=== PATIENT | male | born 1935 | race Caucasian/White ===

== ENCOUNTER 2017-01-22 10:04 | Inpatient (IN) | payer OTHER, MEDICARE ==
[2017-01-22 10:25] VITALS: BMI 23.5
--- NOTE | 2017-01-22 10:35 | PDOC ---
History of Present Illness - General History Source: Patient, Care Provider Exam Limitations: Dementia - History of Present Illness Timing/Duration: reports: other (2 days) <Kelsi Young - Last Filed: 01/22/17 12:00> - General History Source: Patient, Other Exam Limitations: Dementia - History of Present Illness Initial Comments: 01/22/17 10:37 The patient is a 81 year old male, resident of [facility], accompanied by home health aide, with a significant past medical history of hypertension, hyperlipidemia, diabetes mellitus, dementia, and bladder/prostate cancer, who presents to the emergency department s/p MRI evaluation earlier this morning. The patient reports he was being evaluated for an MRI this morning, due to recent history of coughing and choking while eating. MRI was ordered for possible brain mass or stroke. As per home health aide, the patients speech has been clear. She denies patient has any new weakness, numbness, or changes in behavior. The patient denies any chest pain, shortness of breath, diaphoresis , or palpitations. The patient denies any fever, chills, headache, dizziness, lightheadedness, or changes in vision. The patient denies any recent travel or sick contacts. The patient is on aspirin. Allergies: None reported. Past Surgical History: None Hernia repair, CABG. Social History: Non-smoker. Denies alcohol or drug use. PCP: Dr. Schumacher <Mikayla Lockett - Last Filed: 01/22/17 13:02> - General Chief Complaint: CVA/TIA Stated Complaint: STROKE Time Seen by Provider: 01/22/17 10:10 Past History - Past Medical History Cancer: Yes (UROLOGICAL) Diabetes: Yes Disorders: Yes (UROLOGICAL CA) HTN: Yes Hypercholesterolemia: Yes - Surgical History Abdominal Surgery: Yes (HERNIA REPAIR) Cardiac Surgery: Yes (CABG) - Psycho/Social/Smoking Cessation Hx Anxiety: No Suicidal Ideation: No Smoking Status: No Smoking History: Never smoked Number of Cigarettes Smoked Daily: 0 Hx Alcohol Use: No <Kelsi Young - Last Filed: 01/22/17 12:00> <Mikayla Lockett - Last Filed: 01/22/17 13:02> - Past Medical History Allergies/Adverse Reactions: Allergies Allergy/AdvReac Type Severity Reaction Status Date / Time No Known Allergies Allergy Verified 01/22/17 10:11 Home Medications: Ambulatory Orders Aspirin Coated [Ecotrin -] 81 mg PO DAILY 06/20/12 Atenolol [Tenormin -] 25 mg PO DAILY 06/20/12 Metformin HCl [Glucophage -] 500 mg PO BID 06/20/12 Oxycodone HCl/Acetaminophen [Percocet 5-325 mg Tablet] 1 - 2 tab PO Q6H Simvastatin 40 mg PO DAILY 06/20/12 Bicalutamide 50 mg PO DAILY 06/21/12 Colace 100 mg PO TID 06/21/12 Plavix 75 mg PO DAILY 06/21/12 Ramipril 2.5 mg PO DAILY 06/21/12 Zetia 10 mg PO DAILY 06/21/12 Levofloxacin [Levaquin -] 500 mg PO DAILY@0600 #6 tablet 06/23/12 Oxycodone HCl/Acetaminophen [Percocet 5-325 mg Tablet] 1 combo PO Q6H PRN #0 tablet 06/23/12 Oxycodone HCl/Acetaminophen [Percocet 5-325 mg Tablet] 2 combo PO Q6H PRN #0 tablet 06/23/12 Review of Systems - Review of Systems Able to Perform ROS?: Yes Comments:: 01/22/17 10:37 GENERAL/CONSTITUTIONAL: No fever or chills. No new weakness. HEAD, EYES, EARS, NOSE AND THROAT: No change in vision. No ear pain or discharge. No sore throat. CARDIOVASCULAR: No chest pain or shortness of breath. RESPIRATORY: Yes: +cough, +choking when eating. No wheezing or hemoptysis. GASTROINTESTINAL: No nausea, vomiting, diarrhea or constipation. GENITOURINARY: No dysuria, frequency, or change in urination. MUSCULOSKELETAL: No joint or muscle swelling or pain. No neck or back pain. SKIN: No rash NEUROLOGIC: No headache, vertigo, loss of consciousness, or change in strength/ sensation. ENDOCRINE: No increased thirst. No abnormal weight change. HEMATOLOGIC/LYMPHATIC: No anemia, easy bleeding, or history of blood clots. ALLERGIC/IMMUNOLOGIC: No hives or skin allergy. <Mikayla Lockett - Last Filed: 01/22/17 13:02> *Physical Exam - Vital Signs Last Vital Signs Temp Pulse Resp BP Pulse Ox 97.7 F 77 20 145/77 98 01/22/17 10:12 01/22/17 10:12 01/22/17 10:12 01/22/17 10:12 01/22/17 10:12 - Physical Exam Comments: 01/22/17 10:38 GENERAL: Awake, alert, and disoriented to place and date, in no acute distress HEAD: No signs of trauma. Mild nasolabial flattening on left side of face, corrected with smiling. EYES: PERRLA, EOMI, sclera anicteric, conjunctiva clear ENT: Auricles normal inspection, hearing grossly normal, nares patent. Dry mucosa NECK: Normal ROM, supple, no lymphadenopathy, JVD, or masses LUNGS: Breath sounds equal, clear to auscultation bilaterally. No wheezes, and no crackles HEART: Regular rate and rhythm, normal S1 and S2, no murmurs, rubs or gallops ABDOMEN: Soft, nontender, normoactive bowel sounds. No guarding, no rebound. No masses EXTREMITIES: Normal range of motion, no edema. No clubbing or cyanosis. No cords, erythema, or tenderness. DP/PT pulses 2+ and symmetric. NEUROLOGICAL: Mild nasolabial flattening on left side of face. VF intact. EOMI. Mild left upper extremity weakness 4+/5. Bilateral lower extremity weakness 4+/5 , both drift and hit the bed. Sensation intact throughout. Speech is clear. Moves all extremities. Normal speech, normal gait SKIN: Warm, Dry, normal turgor, no rashes or lesions noted. <Mikayla Lockett - Last Filed: 01/22/17 13:02> Heart Score/ECG Review - ECG Intrepretation Rhythm: Regular Rhythm - [place]: Normal Comment: 01/22/17 12:00 69 bpm. Q wave III only, no st elevation or depression. <Kelsi Yougn - Last Filed: 01/22/17 12:00> Critical Care Time/MDM Note - Medical Decision Making Note: 01/22/17 10:14 81 yo m with h/o bladder ca, htn DM here from MRI for concerns for acute cva. pt aid here providing history, states had choking episode few days ago, so follow up with urologist yesterday, who ordered brain MRI, sent from MRI today for acute cva on mri. pt denies acute weakness, no cp no sob. per aid, speech is baseline, she has worked with pt for few months, only in pm however. no f/c no n/v. no new weakness. on exam mild left nasolabial left fold flattening correct with smilling .speech clear. mild left upper ext weakness . bilat lower ext weakness, sensation intact. MDM: MRI with subacute right cerebral infarct. will admit for echo, carotid eval. consult nuerology, and pcp. labs ua r/o infection such as uti. cxr. 01/22/17 11:25 d/w dr. butterfield, will see pt in hospital. recommend admit, asa, statin if not already taking, swallow screen echo. pt sees dr. malik, not come to [facility]. 01/22/17 11:46 d/w dr. Moss at [facility]. will fax over [employer]. will notify family ( son). told to admit to hospitalist. d/w , will admit to dr. Jacobo. <Kelsi Young - Last Filed: 01/22/17 12:00> - Medical Decision Making Note: 01/22/17 10:39 EXAM: Brain MRI INTERPRETED BY: Dr. Ortega REVIEWED BY: Dr. Young IMPRESSION: Nonhemorrhagic acute/early subacute infarct involving the right cerebral peduncle - in the vascular territory of the peduncular branches of P1 segment of the right posterior cerebral artery. Cerebral atrophy associated with extensive coalescent supratentorial white matter chronic microangiopathic ischemic changes, gliosis. Dilated temporal horns associated with loss of volume of the medial temporal lobes, hippocampus - Alzheimer dementia4 EXAM: CXR INTERPRETED BY: Dr. Ortega REVIEWED BY: Dr. Young IMPRESSION: No evidence of active pulmonary disease. First call placed to Dr. Butterfield at 10:49, awaiting call back. First call placed to Dr. Cotto at 11:31. Case discussed at this time. Documentation prepared by Mikayla Lockett, acting as medical biller coder for Kelsi Young MD. <Mikayla Lockett - Last Filed: 01/22/17 13:02> Discharge Disposition - Discharge Dispostion Admit: Yes <Kelsi Young - Last Filed: 01/22/17 12:00> <Mikayla Lockett - Last Filed: 01/22/17 13:02> - Diagnosis Cerebrovascular accident (CVA)
--- NOTE | 2017-01-22 10:37 | PDOC ---
NIH Stroke Scale - Last Known Well Date/Time & Onset Date Last Known Well: 01/20/17 - Initial Evaluation Level of consciousness: Alert Ask patient the month and their age: Both incorrect Ask patient to open & close eyes; make fist and let go: Obeys both correctly Best gaze (horizontal eye movement): Normal Visual field testing: No visual field loss Facial paresis (Show teeth/raise eyebrows/close eyes tight): Minor paralysis ( flattened nasolabial fold, asymmetry on smiling) (mild left nasolabial fold flattening) Motor Function: Left Arm: Normal (no drift, but 4/+ weakness compared to right when against resistance) Motor Function: Right Arm: Normal (extends arm 90 (or 45) degrees for 10 seconds without drift Motor Function: Left Leg: Drift Motor Function: Right Leg: Drift Limb Ataxia: No ataxia Sensory(Use pinprick test arms,legs,trunk,face/side to side): Normal Best language (Describe picture, name items, read sentences): No Aphasia Dysarthria (read several words): Normal articulation Extinction and Inattention: No abnormality - Total Score NIH Stroke Scale Score: 5
[2017-01-22] MEDS ORDERED: SODIUM CHLORIDE 1,000 ML IV SCH (10:45)
[2017-01-22 11:03] LABS: BASOPHIL 0.3 % (0-2.0); EOSINOPHIL 3.9 % (0-4.5); MCH 30.3 pg (25.7-33.7); MCHC 33.9 g/dl (32.0-35.9); MEAN CELL VOLUME 89.2 fl (80-96); MEAN PLT VOLUME 8.7 fl (7.5-11.1); NEUTROPHILS 75.3 % (42.8-82.8); PLATELET COUNT 219 K/MM3 (134-434); WHITE BLOOD COUNT 7.5 K/mm3 (4.0-10.0)
[2017-01-22 11:14] LABS: INR 1.09 (0.82-1.09)
[2017-01-22 11:45] LABS: ALBUMIN 3.3 g/dl (3.4-5.0); ANION GAP 10 (8-16); BILIRUBIN,TOTAL 0.4 mg/dL (0.2-1.0); CALCIUM 8.9 mg/dL (8.5-10.1); CHOLESTEROL 257 mg/dL (50-200); CO2 28 mmol/L (21-32); GLUCOSE,RANDOM 223 mg/dL (74-106); LDL CHOLESTEROL (ONLY SJRH) 193 mg/dL (5-100); SGOT/AST 10 U/L (15-37); SGPT/ALT 9 U/L (12-78); TOT PROT 6.6 g/dl (6.4-8.2)
[2017-01-22 11:46] LABS: ALK PHOS 69 U/L (45-117); TROPONIN I < 0.02 ng/ml (0.00-0.05)
--- NOTE | 2017-01-22 12:26 | HP ---
CHIEF COMPLAINT: recent findings of CVA on MRI HISTORY OF PRESENT ILLNESS: The patient is a 81 year old male from [facility] under Dr. Ellington's care and accompanied by home health aide from the custodial. The [facility] and reports state pt has been having coughing and minor choking episodes in the custodial and his PCP arranged for pt to have an MRI brain for evaluation. Today that MRI was obtained and it was noted to have a positive finding of a non hemorrhagic stroke. As per home health aide, the patients speech has been clear. She denies patient has any new weakness, numbness, or changes in behavior however pt does have moderate dementia. The patient denies any chest pain, shortness of breath, diaphoresis, or palpitations. The patient denies any fever, chills, headache, dizziness, lightheadedness, or changes in vision. The patient denies any recent travel or sick contacts. The patient is on aspirin. Allergies: None reported. Social History: Non-smoker. Denies alcohol or drug use. PCP: Dr. Joyner prior to [facility] admission ER course was notable for: (1) MRI with + finding of acute CVA on right cerebral region non hemorrhagic, pt stable. (2) Neuro consult by Dr. Bynum, will follow pt and pt work up Recent Travel: none resident of [facility] PAST MEDICAL HISTORY: hypertension, hyperlipidemia, diabetes mellitus, dementia, and bladder/prostate cancer, PAST SURGICAL HISTORY: CABG, hernia repair Family History: Allergies No Known Allergies Allergy (Verified 01/22/17 10:11) HOME MEDICATIONS: Need to follow up with halfway for new list of updated meds that pt is taking. Home Medications Medication Instructions Recorded Aspirin Coated [Ecotrin -] 81 mg PO DAILY 06/20/12 Atenolol [Tenormin -] 25 mg PO DAILY 06/20/12 Metformin HCl [Glucophage -] 500 mg PO BID 06/20/12 Oxycodone HCl/Acetaminophen 1 - 2 tab PO Q6H 06/20/12 [Percocet 5-325 mg Tablet] Simvastatin 40 mg PO DAILY 06/20/12 Bicalutamide 50 mg PO DAILY 06/21/12 Colace 100 mg PO TID 06/21/12 Plavix 75 mg PO DAILY 06/21/12 Ramipril 2.5 mg PO DAILY 06/21/12 Zetia 10 mg PO DAILY 06/21/12 Levofloxacin [Levaquin -] 500 mg PO DAILY@0600 #6 tablet 06/23/12 Oxycodone HCl/Acetaminophen 1 combo PO Q6H PRN #0 tablet 06/23/12 [Percocet 5-325 mg Tablet] Oxycodone HCl/Acetaminophen 2 combo PO Q6H PRN #0 tablet 06/23/12 [Percocet 5-325 mg Tablet] REVIEW OF SYSTEMS Difficult to obtain as pt is Awake and alert but not oriented to time, place, or person and makes statements that are irrelevant to discussion. [facility] states this is not any new changes as she cares for him often. PHYSICAL EXAMINATION Vital Signs - 24 hr 01/22/17 01/22/17 01/22/17 10:12 10:20 11:02 Temperature 97.7 F Pulse Rate 77 Pulse Rate [ 68 Left Radial] Respiratory 20 16 Rate Blood Pressure 145/77 Blood Pressure 126/74 [Right Arm] O2 Sat by Pulse 98 98 98 Oximetry (%) GENERAL: Awake, alert, and not oriented to T, P, P but attempts to verbalize and make conversation. HEAD: Normal with no signs of trauma. No facial droop, lips symmetrical EYES: Pupils equal, round and reactive to light, extraocular movements intact, sclera anicteric, conjunctiva clear. No lid lag. EARS, NOSE, THROAT: Ears normal, nares patent, oropharynx clear without exudates. Moist mucous membranes. NECK: Normal range of motion, supple without lymphadenopathy, JVD, or masses. LUNGS: Breath sounds equal, clear to auscultation bilaterally. No wheezes, and no crackles. No accessory muscle use. HEART: Regular rate and rhythm, normal S1 and S2 without murmur, rub or gallop. ABDOMEN: Soft, nontender, not distended, normoactive bowel sounds, no guarding, no rebound, no masses. No hepatomegaly or splenomegaly. MUSCULOSKELETAL: Normal range of motion at all joints. No bony deformities or tenderness. No CVA tenderness. UPPER EXTREMITIES: 2+ pulses, warm, well-perfused. No cyanosis. No clubbing. No peripheral edema. LOWER EXTREMITIES: 2+ pulses, warm, well-perfused. No calf tenderness. No peripheral edema. NEUROLOGICAL: Pt is pleasantly confused, able to follow simple commands but short term only. His NIHSS score prior to my admission was> PSYCHIATRIC: Cooperative. Good eye contact. Appropriate mood and affect. SKIN: Warm, dry, normal turgor, no rashes or lesions noted, normal capillary refill. Laboratory Results - last 24 hr 01/22/17 11:02 WBC 7.5 RBC 4.42 Hgb 13.4 Hct 39.4 MCV 89.2 MCHC 33.9 RDW 14.0 Plt Count 219 MPV 8.7 Neutrophils % 75.3 Lymphocytes % 12.8 Monocytes % 7.7 Eosinophils % 3.9 Basophils % 0.3 ASSESSMENT/PLAN: 1. Right cerebral CVA, non hemorrhagic -ED Dr. Young, spoke with neurology supervisor personnel clerks and due to time frame out from ? CVA onset, no TPA was given. -EKG: NSR currently -Echo -carotid duplex -labs, ua, cxr -ASA continues -statin once list is updated with Ani -swallow study -admission to tele inpatient 2. HTN -continue meds 3. GI/PPX heparin continue 4. Dementia -monitor for fall risk and safety risk 5 HLD -continue with statin Visit type - Emergency Visit Emergency Visit: Yes Care time: The patient presented to the Emergency Department on the above date and was hospitalized for further evaluation of their emergent condition. - New Patient This patient is new to me today: Yes Date on this admission: 01/22/17 - Critical Care Critical Care patient: No
--- NOTE | 2017-01-22 18:41 | CON.NEURO ---
Consult Consult Specialty:: Neurology - History of Present Illness History of Present Illness: 81 year old male history of cabg, and dementia . He is assisted resident. recently he has been having difficulty swallowing and was sent for mri of brain and it showed there is brain stem stroke. he was admitted for treatment of stroke. Family thinks speech may not be very clear . Mri showed acute stroke. - Alcohol/Substance Use Hx Alcohol Use: No - Smoking History Smoking history: Never smoked Have you smoked in the past 12 months: No Aproximately how many cigarettes per day: 0 Home Medications - Allergies Allergies/Adverse Reactions: Allergies Allergy/AdvReac Type Severity Reaction Status Date / Time No Known Allergies Allergy Verified 01/22/17 10:11 - Home Medications Home Medications: Ambulatory Orders Acetaminophen [Tylenol] 650 mg PO PRN PRN 01/22/17 Bupropion HCl [Wellbutrin Xl] 300 mg PO DAILY 01/22/17 Carbidopa/Levodopa *Cr* 25/100 [Sinemet *Cr* 25/100 -] 1 combo PO TID 01/22/17 Insulin Lispro [Humalog] 0 unit SQ ASDIR 01/22/17 Levothyroxine [Synthroid -] 25 mcg PO DAILY 01/22/17 Losartan Potassium 50 mg PO DAILY 01/22/17 Magnesium Hydroxide [Milk of Magnesia] 30 ml PO DAILY 01/22/17 Metformin HCl 500 mg PO BID 01/22/17 Quetiapine Fumarate [Seroquel -] 25 mg PO HS 01/22/17 Physical Exam-Neuro Vital Signs: Vital Signs Temperature 98.8 F 01/22/17 17:33 Pulse Rate 63 01/22/17 17:33 Respiratory Rate 20 01/22/17 17:33 Blood Pressure 146/82 01/22/17 17:33 O2 Sat by Pulse Oximetry (%) 98 01/22/17 15:20 Labs: INR, PTT INR 1.09 (0.82-1.09) 01/22/17 10:50 - Neuro Exam Gait: Normal, Ataxia, Deferred, Other NIH Stroke Scale - Total Score NIH Stroke Scale Score: 0 Imaging - Results MRI: Report Reviewed Assessment/Plan 81 year old male history of cabg, and dementia . He is assisted resident. recently he has been having difficulty swallowing and was sent for mri of brain and it showed there is brain stem stroke. he was admitted for treatment of stroke. Family thinks speech may not be very clear . Mri showed acute stroke. Physical examination MS alert and follow command, orientation x 0 cn - intact, except difficulty swallowing , no facial asymmetry motor moving all extremity MRI reviewed and there is acute stroke Assessment-- Brain stem infarct, causing difficlty swallowing. Plan continue apsirin and statin - pt , speech evauation and dvt prophylaxis -- family wishes to be very conservative and even do not wish to keep him on statin as it caused him to have side effect in past. - at this time extensive work up would not be very helpful and echo and carotid ultrasound may not be necessary - supportive care thanks for consult lorri butterfield md
[2017-01-22] MEDS: metFORMIN HCL 500 MG TABLET (FP) PO SCH (18:43)
[2017-01-22] MEDS ORDERED: QUEtiapine FUMARATE 25 MG TABLET (FP) PO SCH (22:00)
[2017-01-23] MEDS: metFORMIN HCL 500 MG TABLET (FP) PO SCH (06:32)
[2017-01-23 07:19] LABS: BASOPHIL 0.4 % (0-2.0); EOSINOPHIL 4.6 % (0-4.5); MCH 30.6 pg (25.7-33.7); MCHC 34.6 g/dl (32.0-35.9); MEAN CELL VOLUME 88.3 fl (80-96); MEAN PLT VOLUME 8.5 fl (7.5-11.1); NEUTROPHILS 73.8 % (42.8-82.8); PLATELET COUNT 212 K/MM3 (134-434); WHITE BLOOD COUNT 6.8 K/mm3 (4.0-10.0)
[2017-01-23 07:41] LABS: INR 1.12 (0.82-1.09); PROTHROMBIN TIME (PATIENT) 12.3 SEC (9.98-11.88)
[2017-01-23 07:44] LABS: ACTIVATED PTT 24.1 SECONDS (26.9-34.4)
[2017-01-23 07:48] LABS: ALBUMIN 3.2 g/dl (3.4-5.0); ANION GAP 10 (8-16); CALCIUM 8.7 mg/dL (8.5-10.1); CHOLESTEROL 258 mg/dL (50-200); CO2 27 mmol/L (21-32); COCKROFT - GAULT 60.89; CREATININE 0.9 mg/dL (0.7-1.3); GLUCOSE,RANDOM 153 mg/dL (74-106); SGOT/AST 14 U/L (15-37); SGPT/ALT 14 U/L (12-78)
[2017-01-23 07:50] LABS: ALK PHOS 71 U/L (45-117); BILIRUBIN,TOTAL 0.5 mg/dL (0.2-1.0); LDL CHOLESTEROL (ONLY SJRH) 195 mg/dL (5-100); TOT PROT 6.4 g/dl (6.4-8.2); TROPONIN I < 0.02 ng/ml (0.00-0.05)
[2017-01-23] MEDS ORDERED: PT OWN MED DRAWER 7, Y5N ONE ×2 (09:33→12:56)
[2017-01-23] MEDS ORDERED: EZETIMIBE 10 MG TABLET (FP) PO SCH (10:00)
[2017-01-23] MEDS ORDERED: ATENOLOL 25 MG TABLET (FP) PO SCH (10:00)
[2017-01-23] MEDS ORDERED: BICALUTAMIDE 50 MG TABLET (FP) PO SCH (10:00)
[2017-01-23] MEDS ORDERED: RAMIPRIL 2.5 MG CAPSULE (FP) PO SCH (10:00)
[2017-01-23] MEDS ORDERED: ASPIRIN COATED 81 MG TABLET.EC PO SCH (10:00)
[2017-01-23] MEDS ORDERED: CLOPIDOGREL BISULFATE 75 MG TABLET (FP) PO SCH (10:00)
--- NOTE | 2017-01-23 11:57 | PN ---
Physical Exam: SUBJECTIVE: Patient seen and examined. He is calm in bed. He says he feels alright, he is unable to recall where he is. OBJECTIVE: Vital Signs Period Temp Pulse Resp BP Sys/Gibson Pulse Ox Last 24 Hr 97.6 F-98.8 F 63-71 14-20 108-151/64-84 98-98 PE Neuro: alert, awake, cn 2-12intact, 5/5 le motor, L grasp 4/5, R grasp 5/5, no facial droop, sensory intact Pulm: CTAB CV: s1 s2 rrr 3/6 systolic murmur Abd: s nt nd +bs Ext: warm, no le edema CBCD WBC 6.8 K/mm3 (4.0-10.0) 01/23/17 06:00 RBC 4.31 M/mm3 (4.00-5.60) 01/23/17 06:00 Hgb 13.2 GM/dL (11.7-16.9) 01/23/17 06:00 Hct 38.0 % (35.4-49) 01/23/17 06:00 MCV 88.3 fl (80-96) 01/23/17 06:00 MCHC 34.6 g/dl (32.0-35.9) 01/23/17 06:00 RDW 14.0 % (11.9-15.9) 01/23/17 06:00 Plt Count 212 K/MM3 (134-434) 01/23/17 06:00 MPV 8.5 fl (7.5-11.1) 01/23/17 06:00 CMP Sodium 140 mmol/L (136-145) 01/23/17 06:00 Potassium 3.9 mmol/L (3.5-5.1) 01/23/17 06:00 Chloride 103 mmol/L (98-107) 01/23/17 06:00 Carbon Dioxide 27 mmol/L (21-32) 01/23/17 06:00 Anion Gap 10 (8-16) 01/23/17 06:00 BUN 20 mg/dL (7-18) H D 01/23/17 06:00 Creatinine 0.9 mg/dL (0.7-1.3) 01/23/17 06:00 Creat Clearance w eGFR > 60 (>60) 01/23/17 06:00 Calcium 8.7 mg/dL (8.5-10.1) 01/23/17 06:00 Total Bilirubin 0.5 mg/dL (0.2-1.0) D 01/23/17 06:00 AST 14 U/L (15-37) L D 01/23/17 06:00 ALT 14 U/L (12-78) D 01/23/17 06:00 Alkaline Phosphatase 71 U/L (45-117) 01/23/17 06:00 Total Protein 6.4 g/dl (6.4-8.2) 01/23/17 06:00 Albumin 3.2 g/dl (3.4-5.0) L 01/23/17 06:00 01/23/17 06:00 Troponin I < 0.02 B-Natriuretic Peptide 279.49 Total LDL Cholesterol 195 H HDL Cholesterol 37 L Active Medications Generic Name Dose Route Start Last Admin Trade Name Freq PRN Reason Stop Dose Admin Aspirin 81 mg 01/23/17 10:00 01/23/17 09:35 Ecotrin - PO 81 mg DAILY ZEUS Administration Atenolol 25 mg 01/23/17 10:00 01/23/17 09:35 Tenormin - PO 25 mg DAILY ZEUS Administration Atorvastatin Calcium 20 mg 01/23/17 22:00 Lipitor - PO HS ZEUS Bicalutamide 50 mg 01/23/17 10:00 01/23/17 09:36 Casodex - PO 50 mg DAILY ZEUS Administration Carbidopa/Levodopa 1 combo 01/22/17 22:00 01/23/17 06:32 Sinemet *Cr* 25/100 - PO 1 combo TID ZEUS Administration Clopidogrel Bisulfate 75 mg 01/23/17 10:00 01/23/17 09:35 Plavix - PO 75 mg DAILY ZEUS Administration Ezetimibe 10 mg 01/23/17 10:00 01/23/17 09:35 Zetia - PO 10 mg DAILY ZEUS Administration Sodium Chloride 1,000 mls @ 42 mls/hr 01/22/17 10:45 01/22/17 11:14 Normal Saline - IV 42 mls/hr ASDIR ZEUS Administration Metformin HCl 500 mg 01/22/17 16:30 01/23/17 06:32 Glucophage - PO 500 mg BIDAC ZEUS Administration Quetiapine Fumarate 25 mg 01/22/17 22:00 01/22/17 21:14 Seroquel - PO 25 mg HS ZEUS Administration Ramipril 2.5 mg 01/23/17 10:00 01/23/17 09:35 Altace - PO 2.5 mg DAILY ZEUS Administration Assessment: 81 year old male, resident of [facility], accompanied by home health aide, with a significant past medical history of HTN, HLD, DM II, dementia, and bladder/prostate cancer, admitted difficulty swallowing shown to have acute CVA. Plan: 1. Acute CVA - MRI shows Brain stem infarct - Family wishes to be conservative, dose not want statin d/t side effects in past - Take zetia at home - Continue ASA - Per neuro d/t conservative mgmt will defer echo and CD at this time - Swallowing improved, tolerating dysphagia diet - PT daily 2. CABG - Continue plavix/ASA - Ramipril 2.5mg daily - Atenolol 25mg qday 3. HTN - Controlled - Meds above 4. Dementia - Continue seroquel - Continue sinemet 5. DM II - Continue metformin 500mg BID AC 6. Prostate/bladder ca - Cont Casodex 7. Dysphagia - Improved, due to brain stem cva - Continue dysphagia with thickened liquids - Stop fluids Dispo: - Return to [facility], d/w , awaiting response from CT Visit type - Emergency Visit Emergency Visit: Yes ED Registration Date: 01/22/17 Care time: The patient presented to the Emergency Department on the above date and was hospitalized for further evaluation of their emergent condition. - New Patient This patient is new to me today: Yes Date on this admission: 01/23/17 - Critical Care Critical Care patient: No
[2017-01-23] MEDS ORDERED: ENOXAPARIN NA (PORCINE) 40 MG/0.4 ML DISP.SYRIN SQ SCH (12:00)
[2017-01-23 15:09] VITALS: BP 125/72; PULSE 60; TEMP 98.2
--- NOTE | 2017-01-23 15:51 | DS ---
Physical Exam: SUBJECTIVE: Patient seen and examined. He is calm. Ambulated with walker and 2 assist per RN. Tolerating PO. OBJECTIVE: Vital Signs Period Temp Pulse Resp BP Sys/Gibson Pulse Ox Last 24 Hr 97.6 F-98.8 F 60-76 14-20 108-151/64-84 PE Neuro: alert, awake, cn 2-12intact, 5/5 le motor, L grasp 4/5, R grasp 5/5, no facial droop, sensory intact Pulm: CTAB CV: s1 s2 rrr 3/6 systolic murmur Abd: s nt nd +bs Ext: warm, no le edema CBCD WBC 6.8 K/mm3 (4.0-10.0) 01/23/17 06:00 RBC 4.31 M/mm3 (4.00-5.60) 01/23/17 06:00 Hgb 13.2 GM/dL (11.7-16.9) 01/23/17 06:00 Hct 38.0 % (35.4-49) 01/23/17 06:00 MCV 88.3 fl (80-96) 01/23/17 06:00 MCHC 34.6 g/dl (32.0-35.9) 01/23/17 06:00 RDW 14.0 % (11.9-15.9) 01/23/17 06:00 Plt Count 212 K/MM3 (134-434) 01/23/17 06:00 MPV 8.5 fl (7.5-11.1) 01/23/17 06:00 CMP Sodium 140 mmol/L (136-145) 01/23/17 06:00 Potassium 3.9 mmol/L (3.5-5.1) 01/23/17 06:00 Chloride 103 mmol/L (98-107) 01/23/17 06:00 Carbon Dioxide 27 mmol/L (21-32) 01/23/17 06:00 Anion Gap 10 (8-16) 01/23/17 06:00 BUN 20 mg/dL (7-18) H D 01/23/17 06:00 Creatinine 0.9 mg/dL (0.7-1.3) 01/23/17 06:00 Creat Clearance w eGFR > 60 (>60) 01/23/17 06:00 Calcium 8.7 mg/dL (8.5-10.1) 01/23/17 06:00 Total Bilirubin 0.5 mg/dL (0.2-1.0) D 01/23/17 06:00 AST 14 U/L (15-37) L D 01/23/17 06:00 ALT 14 U/L (12-78) D 01/23/17 06:00 Alkaline Phosphatase 71 U/L (45-117) 01/23/17 06:00 Total Protein 6.4 g/dl (6.4-8.2) 01/23/17 06:00 Albumin 3.2 g/dl (3.4-5.0) L 01/23/17 06:00 01/22/17 01/23/17 01/23/17 10:50 06:00 06:00 INR 1.12 PTT (Actin FS) 24.1 L Troponin I < 0.02 < 0.02 Triglycerides 211 H Cholesterol 258 H Total LDL Cholesterol 195 H HDL Cholesterol 37 L HOSPITAL COURSE: Date of Admission:01/22/17 Date of Discharge: 01/23/17 Minutes to complete discharge: 35 Discharge Summary Reason For Visit: CVA Current Active Problems Cerebrovascular accident (CVA) (Acute) Hospital Course: Initial Hospital Course: Briefly, this 81 year old male from [facility] under Dr. Ellington's care and accompanied by home health aide from the prison. The [facility] reported pt has been having coughing and minor choking episodes in the prison and his PCP arranged for pt to have an MRI brain for evaluation. On the day of admission the MRI was obtained and it was noted to have a positive finding of a non hemorrhagic stroke. As per home health aide, the patients speech has been clear. She denied patient has any new weakness, numbness, or changes in behavior however pt does have moderate dementia. Subsequent Hospital Course/Progress Note/Discharge Summary by a/p: Assessment: 81 year old male, resident of [facility], accompanied by home health aide, with a significant past medical history of HTN, HLD, DM II, dementia, and bladder/prostate cancer, admitted difficulty swallowing shown to have acute CVA. Plan: 1. Acute CVA - MRI shows Brain stem infarct, frontal region - Family wishes to be conservative, dose not want statin d/t side effects in past, however d/w son Emiliano, can continue zetia - Continue ASA - Per neuro d/t conservative mgmt will defer echo and CD at this time - Swallowing improved, tolerating dysphagia diet 2. CABG - Will stop plavix - Continue ASA - Losartan 50mg daily - Atenolol 25mg qday 3. HTN - Controlled - Meds above 4. Dementia - Continue Seroquel - Continue Sinemet 5. DM II - Continue metformin 500mg BID AC - Humalog BID sliding scale 6. Prostate/bladder ca - Son wishes to stop Casodex 7. Dysphagia - Improved, due to brain stem cva - Continue dysphagia with thickened liquids Dispo: - Return to [facility], discussed above with son Emiliano, he is aware and agrees to above plan. Condition: Stable - Instructions Diet, Activity, Other Instructions: Please return to the ED for any new, persistent, or worsening symptoms. Continue medications as directed on home medication list. Family to edit medication list in future, for now can continue ASA Referrals: Mel Schumacher MD [Staff Physician] - Disposition: HALFWAY FACILITY - Home Medications Comprehensive Discharge Medication List: Ambulatory Orders Acetaminophen [Tylenol] 650 mg PO PRN PRN 01/22/17 Bupropion HCl [Wellbutrin Xl] 300 mg PO DAILY 01/22/17 Carbidopa/Levodopa *Cr* 25/100 [Sinemet *Cr* 25/100 -] 1 combo PO TID 01/22/17 Levothyroxine [Synthroid -] 25 mcg PO DAILY 01/22/17 Magnesium Hydroxide [Milk of Magnesia] 30 ml PO DAILY 01/22/17 Metformin HCl 500 mg PO BID 01/22/17 Quetiapine Fumarate [Seroquel -] 25 mg PO HS 01/22/17 Aspirin Coated [Ecotrin -] 81 mg PO DAILY tab 01/23/17 Atenolol [Tenormin -] 25 mg PO DAILY tablet 01/23/17 Ezetimibe [Zetia -] 10 mg PO DAILY #0 tablet 01/23/17 Insulin Lispro [Humalog] 100 unit SQ BID #1 ml 01/23/17 Losartan Potassium 50 mg PO DAILY #30 tablet 01/23/17 This patient is new to me today: Yes Date on this admission: 01/23/17 Emergency Visit: Yes ED Registration Date: 01/22/17 Care time: The patient presented to the Emergency Department on the above date and was hospitalized for further evaluation of their emergent condition. Critical Care patient: No - Discharge Referral Referred to [facility] No Quality Measures-Exclusions - Ischemic Stroke Reason Statin not ordered at discharge: Adverse reaction to drug
[2017-01-23] MEDS ORDERED: ATORVASTATIN CA 20 MG TABLET (FP) PO SCH (22:00)
--- NOTE | 2017-01-25 12:56 | EKG ---
Test Reason : Blood Pressure : / mmHG Vent. Rate : 069 BPM Atrial Rate : 069 BPM P-R Int : 206 ms QRS Dur : 104 ms QT Int : 444 ms P-R-T Axes : 036 -13 054 degrees QTc Int : 475 ms NORMAL SINUS RHYTHM INFERIOR INFARCT , AGE UNDETERMINED ABNORMAL ECG NO PREVIOUS ECGS AVAILABLE Confirmed by PETE GAMBLE MD ([id number]) on 01/25/2017 12:56:21 PM Referred By: Confirmed By:PETE GAMBLE MD
== END 2017-01-23 17:30 | DRG 66 ==
LOC: JER 10:04 → JERBED 11:49 → J4S 16:05
PROVIDERS: ADMIT Internal Medicine; ATTEND Nurse Practitioner Acute Care
DX: I63.9 Cerebral infarction, unspecified (principal); E11.9 Type 2 diabetes mellitus without complications; I10 Essential (primary) hypertension; R29.705 NIHSS score 5; E78.5 Hyperlipidemia, unspecified; F03.90 Unspecified dementia, unspecified severity, without behavioral disturbance, psychotic disturbance, mood disturbance, and anxiety; C67.9 Malignant neoplasm of bladder, unspecified; C61 Malignant neoplasm of prostate; Z95.1 Presence of aortocoronary bypass graft; Z79.84 Long term (current) use of oral hypoglycemic drugs; R13.10 Dysphagia, unspecified
CPT/HCPCS: 36415; 70551-TC; 71020-TC; 80053; 80061; 82465; 82550; 83718; 83721; 83880; 84478; 84484; 85025; 85610; 85730; 86850; 86900; 86901; 93005; 93010; 93306-TC; 99285-25

== ENCOUNTER 2017-12-05 04:10 | Inpatient (IN) | payer MEDICARE, OTHER ==
[2017-12-05 04:24] VITALS: BMI 23.7
--- NOTE | 2017-12-05 04:40 | PDOC ---
History of Present Illness - General Chief Complaint: Injury Stated Complaint: FALL Time Seen by Provider: 12/05/17 04:17 - History of Present Illness Initial Comments: 12/05/17 04:31 pt is very poor historian , santhosh was taken from medical record and EMS . The patient is a 81 year old male, with a significant past medical history of hypertension, hyperlipidemia, diabetes mellitus, dementia, and bladder/prostate cancer, who presents to the emergency department s/p un witnessed fall . pt is aaox 2 , denies any chest pain, shortness of breath, diaphoresis, or palpitations. The patient denies any fever, chills, headache, dizziness, lightheadedness, or changes in vision. The patient denies any recent travel or sick contacts. The patient is on aspirin. Allergies: None reported. Past Surgical History: None Hernia repair, CABG. Social History: Non-smoker. Denies alcohol or drug use. PCP: Dr. Schumacher Physical exam : General: laying down in bed in NAD , AAO X [address] Head: right eye echymoses 2x2 cm upper eye lid Neck: supple Lungs: CTA B/L Heart: holosystolic murmure 2/6 in Lusb , LLSB and apex. No rubs or gallops Abdomen: soft , ND ,, NT , + BS Legs: +2DP, + 2 Edema Neuro: CN II-XII non intact , speach normal , gait not observed. Upper ext Strength 5/5 , LE strength 3/5 not able to raise legs against gravity. Sensation intact. skin warm dry , echymoses on right upper eye lid . DD: * Mechanical fall * Psyncope, * arrhthmia * * Work up: * CT head without contrast * EKG * CBC, CMP * orthostatics * cardiac profile 12/05/17 04:41 Past History - Past Medical History Allergies/Adverse Reactions: Allergies Allergy/AdvReac Type Severity Reaction Status Date / Time No Known Allergies Allergy Verified 12/05/17 04:22 Home Medications: Ambulatory Orders Acetaminophen [Tylenol] 650 mg PO PRN PRN 01/22/17 Bupropion HCl [Wellbutrin Xl] 300 mg PO DAILY 01/22/17 Levothyroxine [Synthroid -] 25 mcg PO DAILY 01/22/17 Magnesium Hydroxide [Milk of Magnesia] 30 ml PO DAILY 01/22/17 Aspirin Coated [Ecotrin -] 81 mg PO DAILY tab 01/23/17 Atenolol [Tenormin -] 25 mg PO DAILY tablet 01/23/17 Ezetimibe [Zetia -] 10 mg PO DAILY #0 tablet 01/23/17 Insulin Lispro [Humalog] 100 unit SQ BID #1 ml 01/23/17 Cancer: Yes (UROLOGICAL) Dementia: Yes Diabetes: Yes Disorders: Yes (UROLOGICAL CA) HTN: Yes Hypercholesterolemia: Yes - Surgical History Abdominal Surgery: Yes (HERNIA REPAIR) Cardiac Surgery: Yes (CABG) - Suicide/Smoking/Psychosocial Hx Smoking Status: No Smoking History: Unknown if ever smoked Have you smoked in the past 12 months: No Number of Cigarettes Smoked Daily: 0 Information on smoking cessation initiated: No Hx Alcohol Use: No Drug/Substance Use Hx: No Substance Use Type: None Hx Substance Use Treatment: No *Physical Exam - Vital Signs Last Vital Signs Temp Pulse Resp BP Pulse Ox 98.3 F 65 14 127/69 100 12/05/17 04:22 12/05/17 04:22 12/05/17 04:22 12/05/17 04:22 12/05/17 04:22 ED Treatment Course - LABORATORY CBC & Chemistry Diagram: 12/05/17 05:00 12/05/17 05:43 - RADIOLOGY Radiology Studies Ordered: Category Date Time Status HEAD CT WITHOUT CONTRAST [CT] Stat CT Scan 12/05/17 04:26 Ordered *DC/Admit/Observation/Transfer Diagnosis at time of Disposition: Fall - Discharge Dispostion Condition at time of disposition: Fair - Referrals - Patient Instructions - Post Discharge Activity
--- NOTE | 2017-12-05 05:00 | PDOC ---
Attending Attestation - Resident Resident Name: Cosmo Lin - ED Attending Attestation I have performed the following: I have examined & evaluated the patient, The case was reviewed & discussed with the resident, I agree w/resident's findings & plan, Exceptions are as noted - HPI HPI: 12/05/17 04:55 81 M with h/o hypertension, hyperlipidemia, diabetes mellitus, dementia, and bladder/prostate cancer, who presents to the emergency department s/p unwitnessed fall. Pt has no recollection of event. He is AnOx2 and per [facility] staff , appears to be at baseline. He currently denies any complaints. Denies any chest pain, shortness of breath, diaphoresis, or palpitations. Denies ROSARIO/N/V. Denies neck pain. Denies pain in any extremity. [facility] staff reports that they found him on the ground with abrasion to his forehead. - Physicial Exam PE: 12/05/17 04:56 "GENERAL: Awake, alert, and fully oriented, in no acute distress HEAD: + small abrasion to L forehead EYES: PERRLA, EOMI, sclera anicteric, conjunctiva clear ENT: Auricles normal inspection, hearing grossly normal, nares patent, oropharynx clear without exudates. Moist mucosa NECK: Nontender, no stepoffs, Normal ROM, supple, no lymphadenopathy, JVD, or masses LUNGS: Breath sounds equal, clear to auscultation bilaterally. No wheezes, and no crackles HEART: Regular rate and rhythm, normal S1 and S2, no murmurs, rubs or gallops ABDOMEN: Soft, nontender, normoactive bowel sounds. No guarding, no rebound. No masses EXTREMITIES: Normal range of motion, no edema. No clubbing or cyanosis. No cords, erythema, or tenderness NEUROLOGICAL: Cranial nerves II through XII intact. 5/5 strength and sensation in all extremities, Normal speech, normal gait, normal cerebellar function SKIN: Warm, Dry, normal turgor, no rashes or lesions noted. " - Medical Decision Making 12/05/17 04:59 82 M with abrasion to L forehead after unwitnessed fall. Pt with no other signs of trauma. Stable vitals. Will obtain labs and EKG given unclear history and possible syncope. Pt with unknown downtime at [facility], so will check CPK as well. - Labs, trop, CPK - EKG - CT head - CXR, pelvis XR 12/05/17 05:38 Labs notable for new anemia with Hb 7.6, down from 13 last year. Pt HD stable but possibly fell 2/2 symptomatic anemia. Pt signed out to oncoming attending at 7am, pending labwork, imaging, and admission
[2017-12-05 05:13] LABS: BASO % 0.6 % (0-2.0); EOS % 0.7 % (0-4.5); HEMATOCRIT 23.9 % (35.4-49); HEMOGLOBIN 7.6 GM/dL (11.7-16.9); LYMPH % 6.7 % (8-40); MCH 23.6 pg (25.7-33.7); MCHC 31.8 g/dl (32.0-35.9); MEAN CELL VOLUME 74.2 fl (80-96); MEAN PLT VOLUME 8.6 fl (7.5-11.1); MONO % 8.1 % (3.8-10.2); NEUT % 83.9 % (42.8-82.8); PLATELET COUNT 310 K/MM3 (134-434); RBC 3.23 M/mm3 (4.00-5.60); RDW 23.5 % (11.9-15.9); WHITE BLOOD COUNT 10.1 K/mm3 (4.0-10.0)
--- NOTE | 2017-12-05 07:15 | PDOC ---
History of Present Illness - General Chief Complaint: Injury Stated Complaint: FALL Time Seen by Provider: 12/05/17 04:17 Past History - Past Medical History Allergies/Adverse Reactions: Allergies Allergy/AdvReac Type Severity Reaction Status Date / Time No Known Allergies Allergy Verified 12/05/17 04:22 Home Medications: Ambulatory Orders Acetaminophen [Tylenol] 650 mg PO PRN PRN 01/22/17 Bupropion HCl [Wellbutrin Xl] 300 mg PO DAILY 01/22/17 Levothyroxine [Synthroid -] 25 mcg PO DAILY 01/22/17 Magnesium Hydroxide [Milk of Magnesia] 30 ml PO DAILY 01/22/17 Aspirin Coated [Ecotrin -] 81 mg PO DAILY tab 01/23/17 Atenolol [Tenormin -] 25 mg PO DAILY tablet 01/23/17 Ezetimibe [Zetia -] 10 mg PO DAILY #0 tablet 01/23/17 Insulin Lispro [Humalog] 100 unit SQ BID #1 ml 01/23/17 Cancer: Yes (UROLOGICAL) Dementia: Yes Diabetes: Yes Disorders: Yes (UROLOGICAL CA) HTN: Yes Hypercholesterolemia: Yes - Surgical History Abdominal Surgery: Yes (HERNIA REPAIR) Cardiac Surgery: Yes (CABG) - Suicide/Smoking/Psychosocial Hx Smoking Status: No Smoking History: Unknown if ever smoked Have you smoked in the past 12 months: No Number of Cigarettes Smoked Daily: 0 Information on smoking cessation initiated: No Hx Alcohol Use: No Drug/Substance Use Hx: No Substance Use Type: None Hx Substance Use Treatment: No *Physical Exam - Vital Signs Last Vital Signs Temp Pulse Resp BP Pulse Ox 98.3 F 65 14 127/69 100 12/05/17 04:22 12/05/17 04:22 12/05/17 04:22 12/05/17 04:22 12/05/17 04:22 ED Treatment Course - LABORATORY CBC & Chemistry Diagram: 12/05/17 05:00 12/05/17 05:00 - ADDITIONAL ORDERS Additional order review: Laboratory Results 12/05/17 12/05/17 05:00 05:00 Sodium Cancelled Potassium Cancelled Chloride Cancelled Carbon Dioxide Cancelled Anion Gap Cancelled BUN Cancelled Creatinine Cancelled Creat Clearance w eGFR Cancelled Random Glucose Cancelled Calcium Cancelled Total Bilirubin Cancelled AST Cancelled ALT Cancelled Alkaline Phosphatase Cancelled Creatine Kinase Cancelled Troponin I Cancelled Total Protein Cancelled Albumin Cancelled 12/05/17 05:00 RBC 3.23 L D MCV 74.2 L MCHC 31.8 L RDW 23.5 H D MPV 8.6 Neutrophils % 83.9 H Lymphocytes % 6.7 L D Monocytes % 8.1 Eosinophils % 0.7 D Basophils % 0.6 Medical Decision Making - Medical Decision Making 12/05/17 07:13 Patient signed out by Dr. Lin (Resident) and Dr. Woods (Attending). 82 y.o. male presents s/p fall with possible unwitnessed downtime @ [facility]. Head CT, labs including CPK pending. Patient resting comfortably - no active medical complaints.
--- NOTE | 2017-12-05 07:18 | PDOC ---
*Physical Exam - Vital Signs Last Vital Signs Temp Pulse Resp BP Pulse Ox 98.3 F 65 14 127/69 100 12/05/17 04:22 12/05/17 04:22 12/05/17 04:22 12/05/17 04:22 12/05/17 04:22 - Physical Exam General Appearance: Yes: Nourished, Appropriately Dressed HEENT: positive: EOMI, GERBER, Other (L supraorbital hematoma, minor abrasion - no active hemmorhage) Neck: positive: Trachea midline, Supple Respiratory/Chest: positive: Lungs Clear Cardiovascular: positive: S1, S2, Systolic Murmur Extremity: positive: Normal Capillary Refill, Normal Inspection, Pelvis Stable. negative: Coldness Integumentary: positive: Normal Color, Dry, Warm Neurologic: positive: Fully Oriented, Alert ED Treatment Course - LABORATORY CBC & Chemistry Diagram: 12/05/17 05:00 12/05/17 05:43 - ADDITIONAL ORDERS Additional order review: Laboratory Results 12/05/17 12/05/17 05:00 05:00 Sodium Cancelled Potassium Cancelled Chloride Cancelled Carbon Dioxide Cancelled Anion Gap Cancelled BUN Cancelled Creatinine Cancelled Creat Clearance w eGFR Cancelled Random Glucose Cancelled Calcium Cancelled Total Bilirubin Cancelled AST Cancelled ALT Cancelled Alkaline Phosphatase Cancelled Creatine Kinase Cancelled Troponin I Cancelled Total Protein Cancelled Albumin Cancelled 12/05/17 05:00 RBC 3.23 L D MCV 74.2 L MCHC 31.8 L RDW 23.5 H D MPV 8.6 Neutrophils % 83.9 H Lymphocytes % 6.7 L D Monocytes % 8.1 Eosinophils % 0.7 D Basophils % 0.6 Medical Decision Making - Medical Decision Making 12/05/17 07:17 Patient signed out by Dr. Lin (Resident) and Dr. Woods (Attending). 82 y.o. male presents s/p fall with possible unwitnessed downtime @ [facility]. Head CT, labs including CPK pending. Patient resting comfortably - no active medical complaints. 12/05/17 10:[address] shows no bleed. Case d/w GAYE Erickson, will admit under Dr. Valle, obs tele. Will continue to monitor while in ED. *DC/Admit/Observation/Transfer Diagnosis at time of Disposition: Fall - Discharge Dispostion Condition at time of disposition: Fair Admit: Yes - Referrals - Patient Instructions - Post Discharge Activity
--- NOTE | 2017-12-05 09:56 | HP ---
CHIEF COMPLAINT: Unwitnessed fall PCP: Dr. Frias HISTORY OF PRESENT ILLNESS: 82 year-old male, resident of [facility], with a PMH significant for HTN, HLD, CAD s/p CABG, CVA (brain stem infarct 01/2017), IDDM, dementia, bladder/prostate cancer , and hypothyroidism. Patient brought to ED following an unwitnessed fall. Patient has abrasions to right forehead, RUE, and RLE, and swelling and ecchymosis of left eye lid. ER course was notable for: (1) CT head negative for acute process (2) Xray pelvis negative for fractured (3) Troponins 2.58-->2.43 Recent Travel: No PAST MEDICAL HISTORY: Hypertension Hyperlipidemia Coronary Artery Disease CVA IDDM Dementia Bladder/Prostate Cancer Hypothyroidism PAST SURGICAL HISTORY: CABG Hernia Repair Social History: Smoking: no Alcohol: no Drugs: no Family History: Allergies No Known Allergies Allergy (Verified 12/05/17 04:22) HOME MEDICATIONS: Home Medications Medication Instructions Recorded Acetaminophen [Tylenol] 650 mg PO PRN PRN 01/22/17 Bupropion HCl [Wellbutrin Xl] 300 mg PO DAILY 01/22/17 Levothyroxine [Synthroid -] 25 mcg PO DAILY 01/22/17 Magnesium Hydroxide [Milk of 30 ml PO DAILY 01/22/17 Magnesia] Aspirin Coated [Ecotrin -] 81 mg PO DAILY tab 01/23/17 Atenolol [Tenormin -] 25 mg PO DAILY tablet 01/23/17 Ezetimibe [Zetia -] 10 mg PO DAILY #0 tablet 01/23/17 Insulin Lispro [Humalog] 100 unit SQ BID #1 ml 01/23/17 REVIEW OF SYSTEMS Unable to obtain PHYSICAL EXAMINATION Vital Signs - 24 hr 12/05/17 04:22 Temperature 98.3 F Pulse Rate 65 Respiratory 14 Rate Blood Pressure 127/69 O2 Sat by Pulse 100 Oximetry (%) GENERAL: Awake, alert, responds to questions. A&O x 2. HEAD: Abrasion right forehead; right eyelid swollen and ecchymotic, able to open partially EYES: Pupils equal, round and reactive to light, extraocular movements intact, sclera anicteric, conjunctiva clear. EARS, NOSE, THROAT: Ears normal, nares patent, oropharynx clear without exudates. Moist mucous membranes. LUNGS: Breath sounds equal, clear to auscultation bilaterally. No wheezes, and no crackles. No accessory muscle use. HEART: Regular rate and rhythm, normal S1 and S2 without murmur, rub or gallop. ABDOMEN: Soft, nontender, not distended, normoactive bowel sounds, no guarding, no rebound, no masses. No hepatomegaly or splenomegaly. MUSCULOSKELETAL: Normal range of motion at all joints. No bony deformities or tenderness. No CVA tenderness. UPPER EXTREMITIES: 2+ pulses, warm, well-perfused. No cyanosis. No clubbing. No peripheral edema. LOWER EXTREMITIES: 2+ pulses, warm, well-perfused. No calf tenderness. No peripheral edema. NEUROLOGICAL: Cranial nerves II-XII intact. Normal speech. Laboratory Results - last 24 hr 12/05/17 12/05/17 12/05/17 05:00 05:00 05:00 WBC 10.1 H D RBC 3.23 L D Hgb 7.6 L D Hct 23.9 L D MCV 74.2 L MCH 23.6 L MCHC 31.8 L RDW 23.5 H D Plt Count 310 D MPV 8.6 Neutrophils % 83.9 H Lymphocytes % 6.7 L D Monocytes % 8.1 Eosinophils % 0.7 D Basophils % 0.6 Sodium Cancelled Potassium Cancelled Chloride Cancelled Carbon Dioxide Cancelled Anion Gap Cancelled BUN Cancelled Creatinine Cancelled Creat Clearance w eGFR Cancelled Random Glucose Cancelled Calcium Cancelled Total Bilirubin Cancelled AST Cancelled ALT Cancelled Alkaline Phosphatase Cancelled Creatine Kinase Cancelled Troponin I Cancelled Total Protein Cancelled Albumin Cancelled 12/05/17 05:43 WBC RBC Hgb Hct MCV MCH MCHC RDW Plt Count MPV Neutrophils % Lymphocytes % Monocytes % Eosinophils % Basophils % Sodium Cancelled Potassium Cancelled Chloride Cancelled Carbon Dioxide Cancelled Anion Gap Cancelled BUN Cancelled Creatinine Cancelled Creat Clearance w eGFR Cancelled Random Glucose Cancelled Calcium Cancelled Total Bilirubin Cancelled AST Cancelled ALT Cancelled Alkaline Phosphatase Cancelled Creatine Kinase Troponin I Total Protein Cancelled Albumin Cancelled ASSESSMENT/PLAN: 82 year-old male, resident of [facility], with a PMH significant for HTN, HLD, CAD s/p CABG, diastolic dysfunction, CVA (brain stem infarct 01/2017), IDDM, dementia, bladder/prostate cancer, and hypothyroidism. Patient brought to ED following an unwitnessed fall. Unwitnessed fall --cannot r/o syncope --CT head negative --consider MRI --US carotids pending --telemetry monitoring --neuro consult Elevated troponins Coronary artery disease --first two troponins 2.58-->2.43, third pending --ECG no ST elevations or T wave abnormalities --lovenox x 1 dose, re-evaluate in am whether lovenox v. heparin drip --continue ASA, atenolol, Zetia --cardiology consult Diastolic dysfunction --01/22/17 echo: LV systolic function normal, impaired relaxation, EF 60%; RV normal; LAE; trace to mild MR; mild TR; mild PI --repeat echo Microcytic anemia --Hgb 7.6, was 13.2 in January 2017 --send occult stool --will need anemia workup --check with Jennifer FARRAR re: last colonoscopy Hypertension --continue atenolol Hyperlipidemia --continue Zetia CVA --h/o brain stem infarct 01/2017 --on ASA, start Lipitor IDDM --Novolog sliding scale coverage Dementia --continue Wellbutrin XL Bladder/prostate cancer --stable Hypothyroidism --continue levothyroxine --check TSH FEN Fluids: PO intake adequate Electrolytes: replete as indicated Nutrition: diabetic, low sodium DVT prophylaxis: received lovenox x 1 dose; re-evaluate in am Physical therapy Dispo: continues to require observation. Visit type - Emergency Visit Emergency Visit: Yes ED Registration Date: 12/05/17 Care time: The patient presented to the Emergency Department on the above date and was hospitalized for further evaluation of their emergent condition. - New Patient This patient is new to me today: Yes Date on this admission: 12/06/17 - Critical Care Critical Care patient: No Hospitalist Screening - Colonoscopy Questionnaire Colonoscopy Questionnaire: Colonoscopy Questionnaire - Patient: 50 - 75 years old and never had a screening colonoscopy: Unknown History of colon or rectal polyps, or CA: Unknown History of IBD, Crohn's disease or UC: Unknown History of abdominal radiation therapy as a child: Unknown - Relative: 1 with colon or rectal CA, or polyps at age 60 or younger: Unknown Colon or rectal CA diagnosed at age 45 or younger: Unknown Multiple relatives with colon or rectal CA: Unknown - Outcome: Screening Result: Negative Screen
[2017-12-05] MEDS ORDERED: ATENOLOL 25 MG TABLET (FP) ONE (10:39)
[2017-12-05] MEDS ORDERED: LEVOTHYROXINE NA 25 MCG TABLET (FP) ONE (10:39)
[2017-12-05] MEDS ORDERED: buPROPion HCL 100 MG TABLET ONE (10:40)
[2017-12-05] MEDS: ATENOLOL 25 MG TABLET (FP) PO SCH (10:45)
[2017-12-05] MEDS: LEVOTHYROXINE NA 25 MCG TABLET (FP) PO SCH (10:45)
[2017-12-05] MEDS: INSULIN SLIDING SCALE (NOVOLOG) 1 VIAL SQ SCH ×3 (13:28→22:15)
[2017-12-05 14:30] LABS: BLOOD UREA NITROGEN 30 mg/dL (7-18); CREATININE 1.1 mg/dL (0.7-1.3); GLUCOSE,RANDOM 113 mg/dL (74-106)
[2017-12-05 14:31] LABS: ANION GAP 11 (8-16); BILIRUBIN,TOTAL 0.2 mg/dL (0.2-1.0); CHLORIDE 109 mmol/L (98-107); CO2 23 mmol/L (21-32); POTASSIUM 3.8 mmol/L (3.5-5.1); SGOT/AST 27 U/L (15-37); SGPT/ALT 22 U/L (12-78); SODIUM 143 mmol/L (136-145); TOT PROT 3.3 g/dl (6.4-8.2)
[2017-12-05 14:32] LABS: ALK PHOS 68 U/L (45-117)
[2017-12-05] MEDS: ENOXAPARIN NA (PORCINE) 80 MG/0.8 ML DISP.SYRIN SQ SCH (16:08)
[2017-12-05] MEDS: ASPIRIN COATED 81 MG TABLET.EC PO SCH (16:08)
--- NOTE | 2017-12-05 21:27 | EKG ---
Test Reason : Blood Pressure : / mmHG Vent. Rate : 061 BPM Atrial Rate : 061 BPM P-R Int : 190 ms QRS Dur : 102 ms QT Int : 494 ms P-R-T Axes : 066 075 067 degrees QTc Int : 497 ms NORMAL SINUS RHYTHM INCOMPLETE RIGHT BUNDLE BRANCH BLOCK PROLONGED QT ABNORMAL ECG WHEN COMPARED WITH ECG OF 22-JAN-2017 10:53, QT HAS LENGTHENED Confirmed by ALLEN HORNE MD ([id number]) on 12/05/2017 9:27:25 PM Referred By: Confirmed By:ALLEN HORNE MD
[2017-12-05] MEDS: MELATONIN 5 MG TABLETS PO PRN (22:16)
[2017-12-06] MEDS ORDERED: ATORVASTATIN CA 40 MG TABLET (FP) PO ONE (06:03)
[2017-12-06] MEDS: INSULIN SLIDING SCALE (NOVOLOG) 1 VIAL SQ SCH ×4 (06:47→22:57)
[2017-12-06 07:07] LABS: BASO % 0.2 % (0-2.0); EOS % 4.8 % (0-4.5); HEMATOCRIT 21.5 % (35.4-49); MCH 23.8 pg (25.7-33.7); MCHC 32.2 g/dl (32.0-35.9); MEAN PLT VOLUME 7.9 fl (7.5-11.1); PLATELET COUNT 253 K/MM3 (134-434); RBC 2.91 M/mm3 (4.00-5.60); RDW 24.1 % (11.9-15.9); WHITE BLOOD COUNT 7.3 K/mm3 (4.0-10.0)
[2017-12-06] MEDS: LEVOTHYROXINE NA 25 MCG TABLET (FP) PO SCH (07:08)
[2017-12-06 07:39] LABS: ALBUMIN 2.4 g/dl (3.4-5.0); ANION GAP 7 (8-16); BLOOD UREA NITROGEN 29 mg/dL (7-18); CALCIUM 7.9 mg/dL (8.5-10.1); CHLORIDE 111 mmol/L (98-107); CO2 25 mmol/L (21-32); GLUCOSE,RANDOM 103 mg/dL (74-106); HEMOGLOBIN 6.9 GM/dL (11.7-16.9); MAGNESIUM 2.3 mg/dL (1.8-2.4); POTASSIUM 3.8 mmol/L (3.5-5.1); SGPT/ALT 17 U/L (12-78); SODIUM 143 mmol/L (136-145)
[2017-12-06 07:44] LABS: ALK PHOS 57 U/L (45-117); BILIRUBIN,TOTAL 0.2 mg/dL (0.2-1.0); CREATININE 1.1 mg/dL (0.7-1.3); N-TERMINAL BNP 5876.81 pg/ml (5-450); SGOT/AST 19 U/L (15-37); TOT PROT 5.4 g/dl (6.4-8.2)
--- NOTE | 2017-12-06 09:04 | CON.CARD ---
Consult Consult Specialty:: Cardiology Referred by:: Esequiel Alonso Reason for Consultation:: Fall. 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 Patient found on floor with abrasions to right forehead and eyelid. Patient is without complaints and comfortable in bed. Cannot give any medical history. Denies any chest pain, sob, or palpitations. No pnd, orthopnea or edema. 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 Cardio/Vascular: Yes: CAD, HTN, Hyperlipdemia Endocrine: Yes: Diabetes Mellitus - Past Surgical History Past Surgical History: Yes: CABG - Alcohol/Substance Use Hx Alcohol Use: No - Smoking History Smoking history: Unknown if ever smoked Have you smoked in the past 12 months: No Aproximately how many cigarettes per day: 0 Home Medications - Allergies Allergies/Adverse Reactions: Allergies Allergy/AdvReac Type Severity Reaction Status Date / Time No Known Allergies Allergy Verified 12/05/17 04:22 - Home Medications Home Medications: Ambulatory Orders Acetaminophen [Tylenol] 650 mg PO PRN PRN 01/22/17 Bupropion HCl [Wellbutrin Xl] 300 mg PO DAILY 01/22/17 Levothyroxine [Synthroid -] 25 mcg PO DAILY 01/22/17 Magnesium Hydroxide [Milk of Magnesia] 30 ml PO DAILY 01/22/17 Aspirin Coated [Ecotrin -] 81 mg PO DAILY tab 01/23/17 Atenolol [Tenormin -] 25 mg PO DAILY tablet 01/23/17 Ezetimibe [Zetia -] 10 mg PO DAILY #0 tablet 01/23/17 Insulin Lispro [Humalog] 100 unit SQ BID #1 ml 01/23/17 Vital Signs: Vital Signs Temperature 98.7 F 12/06/17 06:00 Pulse Rate 59 L 12/06/17 06:00 Respiratory Rate 18 03/26/18 06:00 Blood Pressure 123/63 12/06/17 06:00 O2 Sat by Pulse Oximetry (%) 98 12/06/17 02:00 Constitutional: Yes: No Distress Eyes: Yes: Other (ecchymosis to right eyelid) Neck: Yes: Supple Respiratory: Yes: CTA Bilaterally Gastrointestinal: Yes: Soft Cardiovascular: Yes: Regular Rate and Rhythm JVD: No Carotid Bruit: No PMI: Non-Displaced Heart Sounds: Yes: S1, S2 Murmur: Yes: Systolic Murmur (+3/6 HSM throughout greatest upper sternal border) Extremities: Yes: WNL Edema: No Edema: LLE: Trace, RLE: Trace - Other Data Labs, Other Data: CBC, BMP 12/06/17 06:45 12/06/17 06:45 Troponin, BNP 12/05/17 12/05/17 12/05/17 05:43 10:55 21:40 Troponin I 2.58 H* D 2.43 H* 2.01 H* B-Natriuretic Peptide 12/06/17 06:45 Troponin I B-Natriuretic Peptide 5876.81 H Troponin, BNP 12/05/17 12/05/17 12/05/17 05:43 10:55 21:40 Troponin I 2.58 H* D 2.43 H* 2.01 H* B-Natriuretic Peptide 12/06/17 06:45 Troponin I B-Natriuretic Peptide 5876.81 H Imaging - Results Chest X-ray: Report Reviewed Cat Scan: Report Reviewed EKG: Image Reviewed Assessment/Plan 82 year old male from care home with a pmhx of htn, hld, CAD s/p CABG, h/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 Patient found on floor with abrasions to right forehead and eyelid. Patient is without complaints and comfortable in bed. Cannot give any medical history. Denies any chest pain, sob, or palpitations. No pnd, orthopnea or edema. On tele with no events since started CT head negative for acute process CXR clear lungs CK 203 Troponins 2.58 --> 2.43--> 2 Hgb 7.6 down to 6.9 Carotid US: No significant stenosis or occlussions EKG: sinus rhythm at 61bpm, nl axis, no acute st changes 1) Elevated Troponins -Troponins elevated in patient with h/o CAD and CABG as per medical record. CK is normal. Troponin trending down. EKG with no acute ST changes. Patient is asymptomatic. -Significant anemia with Hgb 6.9. Would not treat with anticoagulation/lovenox or heparin drip. Plan for echocardiogram to evaluate LVEF and valve anatomy Would continue telemetry at this time as unclear etiology of fall but patient with significant dementia. Likely another 24 hours on monitor. No events so far. Taking out statin order as DC summary from last admission says that patient had history of issues with statin and family at the time did not want him on statins. Continue zetia. If no acute bleeding and BP tolerates can continue beta conrado low dose. Aspirin 81mg daily if no contraindications as per primary team. If acute bleeding and needs to stop than would. Anemia work up as per primary team
[2017-12-06] MEDS: EZETIMIBE 10 MG TABLET (FP) PO SCH (10:04)
[2017-12-06] MEDS: ASPIRIN COATED 81 MG TABLET.EC PO SCH (10:04)
[2017-12-06] MEDS: ATENOLOL 25 MG TABLET (FP) PO SCH ×2 (10:04→10:06)
[2017-12-06] MEDS: MAGNESIUM HYDROX 2400MG/30ML ORAL SUSPENSION 30 ML CUP PO SCH (10:05)
[2017-12-06] MEDS ORDERED: INSULIN (NOVOLOG) ASPART 100 UNITS/ML 10ML VIAL ONE ×2 (11:24→17:05)
--- NOTE | 2017-12-06 12:08 | PN ---
Progress Note (short form) - Note Progress Note: Subjective: The patient was seen and examined at the bedside, he is A&Ox1 only Hgb 6.9 today, 1u PRBC given, will assess H/H after and determine if 2nd unit required F/u stool for occult blood, no evidence of rectal bleeding on digital exam Hematuria Current Medications Generic Name Dose Route Start Last Admin Trade Name Freq PRN Reason Stop Dose Admin Aspirin 81 mg 12/05/17 15:30 12/06/17 10:04 Ecotrin - PO 81 mg DAILY ZEUS Administration Atenolol 25 mg 12/05/17 10:15 12/06/17 10:06 Tenormin - PO Not Given DAILY ZEUS Bupropion HCl 300 mg 12/05/17 10:15 12/05/17 10:45 Wellbutrin Xl - PO 300 mg DAILY ZEUS Administration Ezetimibe 10 mg 12/06/17 10:00 12/06/17 10:04 Zetia - PO 10 mg DAILY ZEUS Administration Enoxaparin Sodium 80 mg 12/05/17 15:30 12/05/17 16:08 Lovenox - SQ 80 mg ONCE ZEUS Administration Insulin Aspart 1 vial 12/05/17 11:00 12/06/17 11:21 Novolog Vial Sliding Scale - SQ Not Given ACHS ZEUS Protocol Levothyroxine Sodium 25 mcg 12/05/17 10:15 12/06/17 07:08 Synthroid - PO 25 mcg AM [facility]EUS Administration Magnesium Hydroxide 30 ml 12/06/17 10:00 12/06/17 10:05 Milk Of Magnesia - PO 30 ml DAILY [facility]EUS Administration Melatonin 5 mg 12/05/17 21:03 12/05/17 22:16 Melatonin PO 5 mg HS PRN Administration INSOMNIA Objective: Vital Signs Period Temp Pulse Resp BP Sys/Gibson Pulse Ox Last 24 Hr 98.2 F-99 F 55-66 16-20 112-148/53-78 96-99 Physical Exam: General: NAD, A&Ox1 Head: Right eye ecchymosis Lungs: CTA bilaterally Heart: RRR, S1S2 Abd: Hematuria in diaper. Soft, non-tender, non-distended. Normoactive bowel sounds Ext: Warm, well-perfused. 2+ DP/PT bilaterally Neuro: CN unable to assess, patient uncooperative CBCD WBC 7.3 K/mm3 (4.0-10.0) 03/26/18 06:45 RBC 2.91 M/mm3 (4.00-5.60) L 12/06/17 06:45 Hgb 6.9 GM/dL (11.7-16.9) L* 12/06/17 06:45 Hct 21.5 % (35.4-49) L 12/06/17 06:45 MCV 74.0 fl (80-96) L 12/06/17 06:45 MCHC 32.2 g/dl (32.0-35.9) 12/06/17 06:45 RDW 24.1 % (11.9-15.9) H 12/06/17 06:45 Plt Count 253 K/MM3 (134-434) 12/06/17 06:45 MPV 7.9 fl (7.5-11.1) 12/06/17 06:45 CMP Sodium 143 mmol/L (136-145) 12/06/17 06:45 Potassium 3.8 mmol/L (3.5-5.1) 12/06/17 06:45 Chloride 111 mmol/L (98-107) H 12/06/17 06:45 Carbon Dioxide 25 mmol/L (21-32) 12/06/17 06:45 Anion Gap 7 (8-16) L 12/06/17 06:45 BUN 29 mg/dL (7-18) H 12/06/17 06:45 Creatinine 1.1 mg/dL (0.7-1.3) 12/06/17 06:45 Creat Clearance w eGFR > 60 (>60) 12/06/17 06:45 Random Glucose 103 mg/dL (74-106) 12/06/17 06:45 Calcium 7.9 mg/dL (8.5-10.1) L 12/06/17 06:45 Total Bilirubin 0.2 mg/dL (0.2-1.0) 12/06/17 06:45 AST 19 U/L (15-37) D 12/06/17 06:45 ALT 17 U/L (12-78) D 12/06/17 06:45 Alkaline Phosphatase 57 U/L (45-117) 12/06/17 06:45 Total Protein 5.4 g/dl (6.4-8.2) L D 12/06/17 06:45 Albumin 2.4 g/dl (3.4-5.0) L 12/06/17 06:45 CARDIAC ENZYMES Creatine Kinase 203 IU/L (39-308) 12/05/17 05:43 Troponin I 2.01 ng/ml (0.00-0.05) H* 12/05/17 21:40 Assessment: This is an 82 year old male with PMHx of HTN, HLD, CAD s/p CABG, diastolic dysfunction, CVA (brain stem infarct 01/2017), IDDM, dementia, bladder /prostate cancer, and hypothyroidism who presented to the ED s/p unwitnessed fall Plan: 1) Severe anemia - Patient asymptomatic, however does appear pale. spoke to GAYE perez [facility] who states the patients baseline Hgb 7.7 since 06/2017 - 1U PRBC ordered, will assess H/H, respiratory status after first unit to determine if patient will require a second unit - Bedside guiac negative - Hematuria (hx of bladder/prostate cancer) - F/u iron studies - F/u urology consult 2) Elevated troponins - Trending down - Given ASA this AM - F/u ECHO - Hold all anticoagulation 2/2 severe anemia - EKG with no ST changes - Appreciate cardiology consult 3) Unwitnessed fall vs. syncope - CT head with no evidence of intracranial hemorrhage - Carotid doppler negative for high grade stenosis - F/u neurology consult 4) HTN - Continue Atenolol (monitor HR and BP closely) 5) Hyperlipidemia - Continue Zetia - Lipitor discontinued as the family reports the patient was unable to tolerate it 6) CVA - Hx of brain stem infarct 01/2017 - Hold ASA - No statin as above 7) IDDM - BGM ACHS - ISS ACHS 8) Bladder/prostate cancer - May be reason for hematuria? - F/u urology consult 9) Hypothyroidism - Continue Synthroid - TSH wnl 10) F/E/N: - Diabetic/sodium controlled diet - Monitor electrolytes 11) Prophylaxis: - Hold all chemical DVT prophylaxis 2/2 severe anemia - SCDs bilaterally 12) Dispo: - Requires continued inpatient care Visit type - Emergency Visit Emergency Visit: Yes ED Registration Date: 12/05/17 Care time: The patient presented to the Emergency Department on the above date and was hospitalized for further evaluation of their emergent condition. - New Patient This patient is new to me today: Yes Date on this admission: 12/06/17 - Critical Care Critical Care patient: No
[2017-12-06] MEDS ORDERED: PT OWN MED DRAWER 7, Y5N ONE (13:32)
[2017-12-06] MEDS: ENOXAPARIN NA (PORCINE) 80 MG/0.8 ML DISP.SYRIN SQ SCH (14:59)
[2017-12-06 17:40] LABS: HEMATOCRIT 24.7 % (35.4-49); MCH 24.9 pg (25.7-33.7); MCHC 32.5 g/dl (32.0-35.9); MEAN CELL VOLUME 76.8 fl (80-96); MEAN PLT VOLUME 8.3 fl (7.5-11.1); PLATELET COUNT 267 K/MM3 (134-434); RBC 3.22 M/mm3 (4.00-5.60); RDW 24.4 % (11.9-15.9); WHITE BLOOD COUNT 6.6 K/mm3 (4.0-10.0)
--- NOTE | 2017-12-06 17:43 | CON.GU ---
Consult Consult Specialty:: Referred by:: Celeste Reason for Consultation:: hematuria - History of Present Illness Chief Complaint: bloody urine History of Present Illness: 82 yo m NH res w PMH of HTN, HLD, CAD s/p CABG, s/p CVA, IDDM, dementia, bladder and prostate ca and hypothyroidism adm 12/05/17 w gross painless hematuria and cons req. 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 Cardio/Vascular: Yes: CAD, HTN, Hyperlipdemia Renal/: Yes: Cancer Endocrine: Yes: Diabetes Mellitus - Past Surgical History Past Surgical History: Yes: CABG, Hernia Repair - Alcohol/Substance Use Hx Alcohol Use: No - Smoking History Smoking history: Unknown if ever smoked Have you smoked in the past 12 months: No Aproximately how many cigarettes per day: 0 Home Medications - Allergies Allergies/Adverse Reactions: Allergies Allergy/AdvReac Type Severity Reaction Status Date / Time No Known Allergies Allergy Verified 12/05/17 04:22 - Home Medications Home Medications: Ambulatory Orders Acetaminophen [Tylenol] 650 mg PO PRN PRN 01/22/17 Bupropion HCl [Wellbutrin Xl] 300 mg PO DAILY 01/22/17 Levothyroxine [Synthroid -] 25 mcg PO DAILY 01/22/17 Magnesium Hydroxide [Milk of Magnesia] 30 ml PO DAILY 01/22/17 Aspirin Coated [Ecotrin -] 81 mg PO DAILY tab 01/23/17 Atenolol [Tenormin -] 25 mg PO DAILY tablet 01/23/17 Ezetimibe [Zetia -] 10 mg PO DAILY #0 tablet 01/23/17 Insulin Lispro [Humalog] 100 unit SQ BID #1 ml 01/23/17 Review of Systems - Review of Systems Genitourinary: reports: Hematuria Physical Exam- Vital Signs: Vital Signs Temperature 98.4 F 12/06/17 14:00 Pulse Rate 65 12/06/17 14:00 Respiratory Rate 20 12/06/17 10:00 Blood Pressure 121/72 12/06/17 14:00 O2 Sat by Pulse Oximetry (%) 96 12/06/17 10:00 Labs: CBC, BMP 12/06/17 06:45 12/06/17 06:45 Problem List - Problems (1) Hematuria Code(s): R31.9 - HEMATURIA, UNSPECIFIED (2) Hematuria Code(s): R31.9 - HEMATURIA, UNSPECIFIED Assessment/Plan Imp: Gross hematuria, hx of bladder and prostate ca, anemia Rec: u/a c+s, cytology, FISH, F/U w PMD Dr. Meraz.
--- NOTE | 2017-12-06 17:59 | CON.NEURO ---
Consult - History of Present Illness History of Present Illness: 82 year-old male, resident of [place], with a PMH significant for HTN, HLD, CAD s/p CABG, CVA (brain stem infarct 01/2017), IDDM, dementia, bladder/prostate cancer , and hypothyroidism. Patient brought to ED following an unwitnessed fall. Patient has abrasions to right forehead, RUE, and RLE, and swelling and ecchymosis of left eye lid. Doppler: Impression: No evidence of high grade stenosis or occlusion. CT HD Impression: No acute bleed or mass or fracture.No CT evidence of acute infarct. 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 Cardio/Vascular: Yes: CAD, HTN, Hyperlipdemia Renal/: Yes: Cancer Endocrine: Yes: Diabetes Mellitus - Past Surgical History Past Surgical History: Yes: CABG, Hernia Repair - Alcohol/Substance Use Hx Alcohol Use: No - Smoking History Smoking history: Unknown if ever smoked Have you smoked in the past 12 months: No Aproximately how many cigarettes per day: 0 Home Medications - Allergies Allergies/Adverse Reactions: Allergies Allergy/AdvReac Type Severity Reaction Status Date / Time No Known Allergies Allergy Verified 12/05/17 04:22 - Home Medications Home Medications: Ambulatory Orders Acetaminophen [Tylenol] 650 mg PO PRN PRN 01/22/17 Bupropion HCl [Wellbutrin Xl] 300 mg PO DAILY 01/22/17 Levothyroxine [Synthroid -] 25 mcg PO DAILY 01/22/17 Magnesium Hydroxide [Milk of Magnesia] 30 ml PO DAILY 01/22/17 Aspirin Coated [Ecotrin -] 81 mg PO DAILY tab 01/23/17 Atenolol [Tenormin -] 25 mg PO DAILY tablet 01/23/17 Ezetimibe [Zetia -] 10 mg PO DAILY #0 tablet 01/23/17 Insulin Lispro [Humalog] 100 unit SQ BID #1 ml 01/23/17 Physical Exam-Neuro Vital Signs: Vital Signs Temperature 98.4 F 12/06/17 14:00 Pulse Rate 65 12/06/17 14:00 Respiratory Rate 20 12/06/17 10:00 Blood Pressure 121/72 12/06/17 14:00 O2 Sat by Pulse Oximetry (%) 96 12/06/17 10:00 Constitutional: Yes: Calm Labs: CBC, BMP 12/06/17 17:00 12/06/17 06:45 - Neuro Exam Level Of Consciousness: Yes: Alert (awake alert, not orienetd to place, yr , HX of dementia, follows basic request, swelling Right eye, no facial motor 5./5, no drift, reflxes trace ) Imaging - Results Cat Scan: Report Reviewed, Image Reviewed Problem List - Problems (1) Dementia Code(s): F03.90 - UNSPECIFIED DEMENTIA WITHOUT BEHAVIORAL DISTURBANCE (2) Fall Code(s): W19.XXXA - UNSPECIFIED FALL, INITIAL ENCOUNTER (3) Hematuria Code(s): R31.9 - HEMATURIA, UNSPECIFIED (4) Cerebrovascular accident (CVA) Code(s): I63.9 - CEREBRAL INFARCTION, UNSPECIFIED Assessment/Plan 82 year-old male, resident of [place], with a PMH significant for HTN, HLD, CAD s/p CABG, CVA (brain stem infarct 01/2017), IDDM, dementia, bladder/prostate cancer , and hypothyroidism. Patient brought to ED following an unwitnessed fall. Patient has abrasions to right forehead, RUE, and RLE, and swelling and ecchymosis of left eye lid. Doppler: Impression: No evidence of high grade stenosis or occlusion. CT HD Impression: No acute bleed or mass or fracture.No CT evidence of acute infarct. Fall : fall likely from anemia /low BP-- no evidence of new stroke or seizure; hold ASA given anemia medical SCHAEFFER for anemia and r/o possible cardiac causes for syncope ALZ dementia-moderate severe -chronic Dr Newberry
[2017-12-07] MEDS: INSULIN SLIDING SCALE (NOVOLOG) 1 VIAL SQ SCH ×4 (06:17→21:26)
[2017-12-07] MEDS: LEVOTHYROXINE NA 25 MCG TABLET (FP) PO SCH (06:27)
[2017-12-07 07:12] LABS: HEMATOCRIT 26.8 % (35.4-49); HEMOGLOBIN 8.7 GM/dL (11.7-16.9); MCHC 32.4 g/dl (32.0-35.9); MEAN PLT VOLUME 8.1 fl (7.5-11.1); PLATELET COUNT 254 K/MM3 (134-434); RBC 3.48 M/mm3 (4.00-5.60); RDW 24.3 % (11.9-15.9)
[2017-12-07 07:48] LABS: ANION GAP 9 (8-16); BLOOD UREA NITROGEN 30 mg/dL (7-18); CALCIUM 8.1 mg/dL (8.5-10.1); CHLORIDE 108 mmol/L (98-107); CO2 26 mmol/L (21-32); GLUCOSE,RANDOM 134 mg/dL (74-106); SODIUM 143 mmol/L (136-145)
[2017-12-07 08:07] LABS: SERUM IRON SATURATION 4 % (15-55); TOTAL IRON BINDING CAPACITY 286 ug/dL (250-450); UIBC 274 ug/dL (111-343)
[2017-12-07] MEDS: EZETIMIBE 10 MG TABLET (FP) PO SCH (09:38)
[2017-12-07] MEDS: ATENOLOL 25 MG TABLET (FP) PO SCH (09:38)
[2017-12-07] MEDS: MAGNESIUM HYDROX 2400MG/30ML ORAL SUSPENSION 30 ML CUP PO SCH (09:39)
[2017-12-07 11:02] LABS: URINE APPEARANCE CLOUDY; URINE BILIRUBIN NEGATIVE (<2.0 mg/dL); URINE BLOOD 3+ (NEGATIVE); URINE COLOR YELLOW; URINE GLUCOSE (UA) NEGATIVE (NEGATIVE); URINE KETONE NEGATIVE (NEGATIVE); URINE LEUK ESTERASE 3+ (NEGATIVE); URINE NITRITE NEGATIVE (NEGATIVE); URINE PROTEIN 2+ (NEGATIVE); URINE UROBILINOGEN NEGATIVE mg/dL (0.2-1.0)
[2017-12-07 11:45] LABS: EPI CELLS RARE /HPF (FEW); URINE BACTERIA MANY /hpf (NONE SEEN)
--- NOTE | 2017-12-07 12:02 | PN ---
Progress Note (short form) - Note Progress Note: Subjective: The patient was seen and examined at the bedside, he is A&Ox1 only. UA with 3+ blood and 3+ leuks Urine culture pending H/H stable s/p 1u PRBC yesterday Current Medications Generic Name Dose Route Start Last Admin Trade Name Freq PRN Reason Stop Dose Admin Atenolol 25 mg 12/05/17 10:15 12/07/17 09:38 Tenormin - PO 25 mg DAILY ZEUS Administration Bupropion HCl 300 mg 12/05/17 10:15 12/07/17 09:39 Wellbutrin Xl - PO 300 mg DAILY ZEUS Administration Ezetimibe 10 mg 12/06/17 10:00 12/07/17 09:38 Zetia - PO 10 mg DAILY ZEUS Administration Ceftriaxone Sodium 1 gm/ 50 mls @ 100 mls/hr 12/07/17 12:00 Dextrose IVPB DAILY ZEUS Insulin Aspart 1 vial 12/05/17 11:00 12/07/17 06:17 Novolog Vial Sliding Scale - SQ Not Given ACHS ZEUS Protocol Levothyroxine Sodium 25 mcg 12/05/17 10:15 12/07/17 06:27 Synthroid - PO 25 mcg AM ZEUS Administration Magnesium Hydroxide 30 ml 12/06/17 10:00 12/07/17 09:39 Milk Of Magnesia - PO 30 ml DAILY ZEUS Administration Melatonin 5 mg 12/05/17 21:03 12/05/17 22:16 Melatonin PO 5 mg HS PRN Administration INSOMNIA Objective: Vital Signs Period Temp Pulse Resp BP Sys/Gibson Pulse Ox Last 24 Hr 98 F-99.2 F 59-71 20-20 105-146/51-82 97 Physical Exam: General: NAD, A&Ox1 Head: Right eye ecchymosis Lungs: CTA bilaterally Heart: RRR, S1S2 Abd: [place] catheter in place. Soft, non-tender, non-distended. Normoactive bowel sounds Ext: Warm, well-perfused. 2+ DP/PT bilaterally Neuro: CN unable to assess, patient uncooperative CBCD WBC 8.0 K/mm3 (4.0-10.0) 12/07/17 06:57 RBC 3.48 M/mm3 (4.00-5.60) L 12/07/17 06:57 Hgb 8.7 GM/dL (11.7-16.9) L 12/07/17 06:57 Hct 26.8 % (35.4-49) L 12/07/17 06:57 MCV 77.0 fl (80-96) L 12/07/17 06:57 MCHC 32.4 g/dl (32.0-35.9) 12/07/17 06:57 RDW 24.3 % (11.9-15.9) H 12/07/17 06:57 Plt Count 254 K/MM3 (134-434) 12/07/17 06:57 MPV 8.1 fl (7.5-11.1) 12/07/17 06:57 CMP Sodium 143 mmol/L (136-145) 12/07/17 06:57 Potassium 4.0 mmol/L (3.5-5.1) 12/07/17 06:57 Chloride 108 mmol/L (98-107) H 12/07/17 06:57 Carbon Dioxide 26 mmol/L (21-32) 12/07/17 06:57 Anion Gap 9 (8-16) 12/07/17 06:57 BUN 30 mg/dL (7-18) H 12/07/17 06:57 Creatinine 1.0 mg/dL (0.7-1.3) 12/07/17 06:57 Creat Clearance w eGFR > 60 (>60) 12/06/17 06:45 Random Glucose 134 mg/dL (74-106) H D 12/07/17 06:57 Calcium 8.1 mg/dL (8.5-10.1) L 12/07/17 06:57 Total Bilirubin 0.2 mg/dL (0.2-1.0) 12/06/17 06:45 AST 19 U/L (15-37) D 12/06/17 06:45 ALT 17 U/L (12-78) D 12/06/17 06:45 Alkaline Phosphatase 57 U/L (45-117) 12/06/17 06:45 Total Protein 5.4 g/dl (6.4-8.2) L D 12/06/17 06:45 Albumin 2.4 g/dl (3.4-5.0) L 12/06/17 06:45 CARDIAC ENZYMES Creatine Kinase 203 IU/L (39-308) 12/05/17 05:43 Troponin I 2.01 ng/ml (0.00-0.05) H* 12/05/17 21:40 Assessment: This is an 82 year old male with PMHx of HTN, HLD, CAD s/p CABG, diastolic dysfunction, CVA (brain stem infarct 01/2017), IDDM, dementia, bladder /prostate cancer, and hypothyroidism who presented to the ED s/p unwitnessed fall Plan: 1) Severe anemia - Patient asymptomatic, however does appear pale. spoke to UTILITY DRIVER Consuelo Rojasrus who states the patients baseline Hgb 7.7 since 06/2017 - S/p 1u PRBC on 12/06 - Bedside guiac negative - Hematuria (hx of bladder/prostate cancer) - F/u iron studies - Appreciate urology consult 2) Elevated troponins - Trending down - ASA on hold given severe anemia and hematuria - ECHO with normal LV size and function. No regional wall motion abnormalities. Mild to moderate MR, mild TR, mild aortic stenosis. Trace aortic regurg, no pericardial effusion - Hold all anticoagulation 2/2 severe anemia - EKG with no ST changes - Appreciate cardiology consult 3) UTI - UA with 3+ leuks - F/u urine culture - Start Ceftriaxone 4) Unwitnessed fall vs. syncope - CT head with no evidence of intracranial hemorrhage - Carotid doppler negative for high grade stenosis - Appreciate neurology consult 5) HTN - Continue Atenolol (monitor HR and BP closely) 6) Hyperlipidemia - Continue Zetia - Lipitor discontinued as the family reports the patient was unable to tolerate it 7) CVA - Hx of brain stem infarct 01/2017 - Hold ASA - No statin as above 8) IDDM - BGM ACHS - ISS ACHS 9) Bladder/prostate cancer - May be reason for hematuria? - F/u urology consult 10 ) Hypothyroidism - Continue Synthroid - TSH wnl 11) F/E/N: - Diabetic/sodium controlled diet - Monitor electrolytes 12) Prophylaxis: - Hold all chemical DVT prophylaxis 2/2 severe anemia - SCDs bilaterally 13) Dispo: - Requires continued inpatient care Visit type - Emergency Visit Emergency Visit: Yes ED Registration Date: 12/06/17 Care time: The patient presented to the Emergency Department on the above date and was hospitalized for further evaluation of their emergent condition. - New Patient This patient is new to me today: No - Critical Care Critical Care patient: No
[2017-12-07] MEDS ORDERED: cefTRIAXone SODIUM 1 GM VIAL ONE (12:24)
[2017-12-07] MEDS ORDERED: DEXTROSE 5%-WATER - 50 ML IVPB ONE (12:25)
[2017-12-07] MEDS: CEFTRIAXONE 1 GM in DEXTROSE 5%-WATER - 50 ML IVPB SCH (12:38)
--- NOTE | 2017-12-07 13:30 | PN ---
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 Patient found on floor with abrasions to right forehead and eyelid. Patient is without complaints and comfortable in bed. Cannot give any medical history. Denies any chest pain, sob, or palpitations. No pnd, orthopnea or edema. On tele with no events since started CT head negative for acute process CXR clear lungs CK 203 Troponins 2.58 --> 2.43--> 2 Hgb 7.6 down to 6.9 - Current Medication List Current Medications: Active Medications Atenolol (Tenormin -) 25 mg PO DAILY [facility] Last Admin: 12/07/17 09:38 Dose: 25 mg Bupropion HCl (Wellbutrin Xl -) 300 mg PO DAILY [facility] Last Admin: 12/07/17 09:39 Dose: 300 mg Ezetimibe (Zetia -) 10 mg PO DAILY [facility] Last Admin: 12/07/17 09:38 Dose: 10 mg Ceftriaxone Sodium 1 gm/ (Dextrose) 50 mls @ 100 mls/hr IVPB DAILY [facility] Last Admin: 12/07/17 12:38 Dose: 100 mls/hr Insulin Aspart (Novolog Vial Sliding Scale -) 1 vial SQ ACHS ZEUS PRN Reason: Protocol Last Admin: 12/07/17 12:13 Dose: Not Given Levothyroxine Sodium (Synthroid -) 25 mcg PO AM [facility] Last Admin: 12/07/17 06:27 Dose: 25 mcg Magnesium Hydroxide (Milk Of Magnesia -) 30 ml PO DAILY [facility] Last Admin: 12/07/17 09:39 Dose: 30 ml Melatonin (Melatonin) 5 mg PO HS PRN PRN Reason: INSOMNIA Last Admin: 12/05/17 22:16 Dose: 5 mg - Objective Vital Signs: Vital Signs Temperature 99.0 F 12/07/17 10:00 Pulse Rate 62 12/07/17 10:00 Respiratory Rate 20 12/07/17 10:00 Blood Pressure 130/71 12/07/17 10:00 O2 Sat by Pulse Oximetry (%) 96 12/07/17 10:00 Constitutional: Yes: No Distress Neck: Yes: Supple Cardiovascular: Yes: Regular Rate and Rhythm, Murmur (2/6 HSM upper sternal border), S1, S2. 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 Patient found on floor with abrasions to right forehead and eyelid. Patient is without complaints and comfortable in bed. Cannot give any medical history. Denies any chest pain, sob, or palpitations. No pnd, orthopnea or edema. On tele with no events since started CT head negative for acute process CXR clear lungs CK 203 Troponins 2.58 --> 2.43--> 2 Hgb 7.6 down to 6.9 Carotid US: No significant stenosis or occlussions EKG: sinus rhythm at 61bpm, nl axis, no acute st changes 1) Elevated Troponins -Troponins elevated in patient with h/o CAD and CABG as per medical record. CK is normal. Troponin trending down. EKG with no acute ST changes. Patient is asymptomatic. -Significant anemia with Hgb 6.9. Would not treat with anticoagulation/lovenox or heparin drip. echocardiogram with normal LVEF and mild aortic stenosis. to evaluate LVEF and valve anatomy No events on tele since admission. Tele can be discontinued. Fall likely related to severe anemia. Aspirin stopped as per primary team. Anemia work up as per primary team and family No further cardiac testing. Will sign off. Please call if needed
[2017-12-07] MEDS ORDERED: INSULIN (NOVOLOG) ASPART 100 UNITS/ML 10ML VIAL ONE (21:19)
[2017-12-07] MEDS ORDERED: ATORVASTATIN CA 40 MG TABLET (FP) PO SCH (22:00)
[2017-12-08] MEDS: LEVOTHYROXINE NA 25 MCG TABLET (FP) PO SCH (06:01)
[2017-12-08] MEDS: INSULIN SLIDING SCALE (NOVOLOG) 1 VIAL SQ SCH ×4 (06:01→21:08)
[2017-12-08 07:31] LABS: HEMOGLOBIN 8.9 GM/dL (11.7-16.9); MCH 24.5 pg (25.7-33.7); MCHC 31.9 g/dl (32.0-35.9); MEAN CELL VOLUME 76.8 fl (80-96); MEAN PLT VOLUME 8.2 fl (7.5-11.1); PLATELET COUNT 245 K/MM3 (134-434); RBC 3.64 M/mm3 (4.00-5.60); RDW 24.4 % (11.9-15.9); WHITE BLOOD COUNT 8.1 K/mm3 (4.0-10.0)
[2017-12-08] MEDS ORDERED: cefTRIAXone SODIUM 1 GM VIAL ONE (11:30)
[2017-12-08] MEDS ORDERED: DEXTROSE 5%-WATER - 50 ML IVPB ONE (11:30)
[2017-12-08] MEDS: EZETIMIBE 10 MG TABLET (FP) PO SCH (11:37)
[2017-12-08] MEDS: ATENOLOL 25 MG TABLET (FP) PO SCH (11:38)
[2017-12-08] MEDS: CEFTRIAXONE 1 GM in DEXTROSE 5%-WATER - 50 ML IVPB SCH (11:39)
[2017-12-08] MEDS: MAGNESIUM HYDROX 2400MG/30ML ORAL SUSPENSION 30 ML CUP PO SCH (11:39)
--- NOTE | 2017-12-08 11:54 | PN ---
Progress Note (short form) - Note Progress Note: patient is voiding and it is clear today. Bladder not distended. Imp- Prostate cancer Gross hematuria follow up as outpatient in the office with Dr. Meraz
--- NOTE | 2017-12-08 12:39 | CON.ID ---
Consult Consult Specialty:: infectious diseases Reason for Consultation:: uti,hematuria,weakness. syncope - History of Present Illness Chief Complaint: fall,syncope History of Present Illness: 82 year-old male, resident of [place], with a PMH significant for HTN, HLD, CAD s/p CABG, CVA (, IDDM, dementia, bladder/prostate cancer, and hypothyroidism. Patient admitted because of unwitnessed fall. Patient had abrasions to right forehead, RUE, and RLE, and swelling and ecchymosis of left eye lid. 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 Cardio/Vascular: Yes: CAD, HTN, Hyperlipdemia Renal/: Yes: Cancer Endocrine: Yes: Diabetes Mellitus - Past Surgical History Past Surgical History: Yes: CABG, Hernia Repair - Alcohol/Substance Use Hx Alcohol Use: No - Smoking History Smoking history: Unknown if ever smoked Have you smoked in the past 12 months: No Aproximately how many cigarettes per day: 0 Home Medications - Allergies Allergies/Adverse Reactions: Allergies Allergy/AdvReac Type Severity Reaction Status Date / Time No Known Allergies Allergy Verified 12/05/17 04:22 - Home Medications Home Medications: Ambulatory Orders Acetaminophen [Tylenol] 650 mg PO PRN PRN 01/22/17 Bupropion HCl [Wellbutrin Xl] 300 mg PO DAILY 01/22/17 Levothyroxine [Synthroid -] 25 mcg PO DAILY 01/22/17 Magnesium Hydroxide [Milk of Magnesia] 30 ml PO DAILY 01/22/17 Atenolol [Tenormin -] 25 mg PO DAILY tablet 01/23/17 Ezetimibe [Zetia -] 10 mg PO DAILY #0 tablet 01/23/17 Ertapenem Sodium [Invanz -] 1 gm IVPB DAILY vial 12/09/17 Ferrous Sulfate [Feosol] 325 mg PO DAILY@0800 ud 12/09/17 Insulin Sliding Scale [Novolog Vial Sliding Scale -] 1 vial SQ ACHS units 12/09 Melatonin 5 mg PO HS PRN tab 12/09/17 Picc Line Flush [Picc Line Flush -] 8 ml IVPUSH PRN PRN ml 12/09/17 Review of Systems Unable to obtain ROS, reason: unable to obtian Physical Exam Vital Signs: Vital Signs Temperature 98 F 12/08/17 12:03 Pulse Rate 65 12/08/17 12:03 Respiratory Rate 18 12/08/17 12:03 Blood Pressure 144/81 12/08/17 12:03 O2 Sat by Pulse Oximetry (%) 98 12/07/17 21:32 Constitutional: Yes: Calm Eyes: Yes: Conjunctiva Clear HENT: Yes: Other (injury to the forehead) Cardiovascular: Yes: Regular Rate and Rhythm Respiratory: Yes: Regular, CTA Bilaterally Gastrointestinal: Yes: Normal Bowel Sounds, Soft Musculoskeletal: Yes: WNL Extremities: Yes: Other Neurological: Yes: Alert Psychiatric: Yes: Alert Labs: CBC, BMP 12/08/17 06:00 12/07/17 06:57 Imaging - Results Chest X-ray: Report Reviewed, Image Reviewed X-ray: Report Reviewed, Image Reviewed Cat Scan: Report Reviewed, Image Reviewed Ultrasound: Report Reviewed, Image Reviewed Assessment/Plan uti anemia fall htn syncope plan will change ceftriaxone to zosyn await for cx report hydration rest as per primary once we have the cx we will decide further management
--- NOTE | 2017-12-08 13:29 | CONSULT ---
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 Patient brought to ED following an unwitnessed fall. Patient has abrasions to right forehead, RUE, and RLE, and swelling and ecchymosis of left eye lid. Selected Entries 12/07/17 12/07/17 12/07/17 01:00 05:00 10:00 Breakfast 75% Lunch Supper Temperature 98.1 F 99.2 F 99.0 F 12/07/17 12/07/17 12/07/17 14:00 17:00 19:08 Breakfast Lunch 100% Supper 100% Temperature 97.6 F 98.7 F 12/07/17 12/08/17 12/08/17 21:31 01:32 05:00 Breakfast Lunch Supper Temperature 98.2 F 98.3 F 98.2 F 12/08/17 12/08/17 10:11 12:03 Breakfast 75% Lunch Supper Temperature 98 F Laboratory Tests 12/05/17 12/06/17 12/07/17 05:00 06:45 06:57 WBC 10.1 H D 7.3 8.0 PMHX: htn, hld, cad, cabg, CVA, brain stem infarct, IDDM, dementia, bladder/ prostate ca, hypothyroidism Diet in [place] was chopped with NTL. Pt with good po intake but per RN, pt coughing with liquids. Confused, disoriented but verbal. Pt was coughing on reg diet and medication with thin liquids today. 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 Cardiovascular: Yes: CAD, HTN, Hyperlipdemia Renal/: Yes: Cancer Endocrine: Yes: Diabetes Mellitus - Past Surgical History Past Surgical History: Yes: CABG, Hernia Repair - Smoking History Smoking history: Unknown if ever smoked Have you smoked in the past 12 months: No Aproximately how many cigarettes per day: 0 - Alcohol/Substance Use Hx Alcohol Use: No History - Admission Reason For Visit: FALL - Diagnostics X-ray: Report Reviewed CT Scan: Report Reviewed - General Mental Status: Awake and Alert, Able to Follow Commands Attention: Distractible Ability to Follow Directions: Fair Head/Neck Control: Fair - Hearing Hearing: Normal Hearing Aide: No With Patient: No Speech Evaluation - Communication Primary Language: OMANI Communication: Yes: Simple Responses Oral Expression Ability: Yes: Moderate Impairment (tangential, confused) - Speech Production Able to Make Needs Known: Yes: Mildly Impaired, Moderately Impaired Intelligibility: Yes: Mildly Impaired - Speech Characteristics Voice Loudness: Mildly Soft/Quiet Voice Pitch: Yes: Normal Voice Phonatory-based Quality: Yes: Normal Speech Clarity: < 75% Nasal Resonance: Normal - Language/Auditory Comprehension Follows: Yes: 1 Stage Simple Commands - Language/Verbal Expression Aphasia: Yes: Anomia Able to Respond to Simple Queries: Yes: Mildly Impaired, Moderately Impaired Able to Communicate Wants and Needs: Yes: WNL Functional Communication Status: Yes: Mildly Impaired, Moderately Impaired - Memory/Perception alf Memory: Yes: Mildly Impaired, Moderately Impaired Short Term Memory: Yes: Moderately Impaired, Severely Impaired - Swallow Evaluation/Bedside Assessment Current Nutritional Intake: Dysphagia Minced, [place] Textured Liquids Oral Secretions: Yes: WFL Dentition: Yes: Missing Teeth Facial Symmetry at Rest: Symmetrical Facial Symmetry on Retraction: Symmetrical Against Resistance Opening: Normal Against Resistance Closing: Normal Pucker Lips: Normal Smile: Normal Lingual Movement: Normal, Symmetric Lingual Speed of Movement: Normal Lingual Movement Strgth Against Opposition: Normal Lingual Movement Characteristics: Normal Laryngeal Movement: Able to Palpate Labial Seal: WFL Chewing: Impaired Oral Prep Time: Increased Pocketing: Present Bilaterally Timing of Swallow: Delayed Coughing/Throat Clear: Yes Recommendations - Speech Evaluation, Impression/Plan Impression: Reduced efficiency of solids with suspected stasis. Intermittent aspiration on thin liquid suspected. - Dysphagia Impressions/Plan Swallowing Skills: Impaired Dysphagia Impressions: Mild Impairment *Silent aspiration: cannot be R/O at bedside Dysphagia Treatment Plan: Chin Tuck/Down, Safe Rate, 1/2 tsp. at a time, Elevate HOB during feed, Other (Swallowing tx at [place], possible out pt [facility], as indicated.) - Recommendations Diet Consistency: Dysphagia Minced Liquids: [place] Thick
[2017-12-08] MEDS: PIPERACILLIN/TAZOB 3.375 GM 3.375 GM in DEXTROSE 5%-WATER - 50 ML IVPB SCH ×2 (16:26→19:04)
--- NOTE | 2017-12-08 16:55 | PN ---
Progress Note (short form) - Note Progress Note: Subjective: The patient was seen and examined at the bedside, he is A&Ox1 only. More conversant today Coughing while eating regular diet, now on dysphagia diet Started on Zosyn Current Medications Generic Name Dose Route Start Last Admin Trade Name Shyamq PRN Reason Stop Dose Admin Atenolol 25 mg 12/05/17 10:15 12/08/17 11:38 Tenormin - PO 25 mg DAILY ZEUS Administration Bupropion HCl 300 mg 12/05/17 10:15 12/08/17 11:38 Wellbutrin Xl - PO 300 mg DAILY ZEUS Administration Ezetimibe 10 mg 12/06/17 10:00 12/08/17 11:37 Zetia - PO 10 mg DAILY ZEUS Administration Piperacillin Sod/Tazobactam 50 mls @ 100 mls/hr 12/08/17 14:00 12/08/17 16:26 Sod 3.375 gm/ Dextrose IVPB 100 mls/hr Q8H-IV ZEUS Administration Protocol Insulin Aspart 1 vial 12/05/17 11:00 12/08/17 11:26 Novolog Vial Sliding Scale - SQ Not Given ACHS ZEUS Protocol Levothyroxine Sodium 25 mcg 12/05/17 10:15 12/08/17 06:01 Synthroid - PO 25 mcg AM ZEUS Administration Magnesium Hydroxide 30 ml 12/06/17 10:00 12/08/17 11:39 Milk Of Magnesia - PO 30 ml DAILY ZEUS Administration Melatonin 5 mg 12/05/17 21:03 12/05/17 22:16 Melatonin PO 5 mg HS PRN Administration INSOMNIA Objective: Vital Signs Period Temp Pulse Resp BP Sys/Gibson Pulse Ox Last 24 Hr 98 F-98.7 F 58-65 18-20 106-144/69-81 98 Physical Exam: General: NAD, A&Ox1 Head: Right eye ecchymosis Lungs: CTA bilaterally Heart: RRR, S1S2 Abd: Soft, non-tender, non-distended. Normoactive bowel sounds Ext: Warm, well-perfused. 2+ DP/PT bilaterally Neuro: CN unable to assess, patient uncooperative CBCD WBC 8.1 K/mm3 (4.0-10.0) 12/08/17 06:00 RBC 3.64 M/mm3 (4.00-5.60) L 12/08/17 06:00 Hgb 8.9 GM/dL (11.7-16.9) L 12/08/17 06:00 Hct 28.0 % (35.4-49) L 12/08/17 06:00 MCV 76.8 fl (80-96) L 12/08/17 06:00 MCHC 31.9 g/dl (32.0-35.9) L 12/08/17 06:00 RDW 24.4 % (11.9-15.9) H 12/08/17 06:00 Plt Count 245 K/MM3 (134-434) 12/08/17 06:00 MPV 8.2 fl (7.5-11.1) 12/08/17 06:00 CMP Sodium 143 mmol/L (136-145) 12/07/17 06:57 Potassium 4.0 mmol/L (3.5-5.1) 12/07/17 06:57 Chloride 108 mmol/L (98-107) H 12/07/17 06:57 Carbon Dioxide 26 mmol/L (21-32) 12/07/17 06:57 Anion Gap 9 (8-16) 12/07/17 06:57 BUN 30 mg/dL (7-18) H 12/07/17 06:57 Creatinine 1.0 mg/dL (0.7-1.3) 12/07/17 06:57 Creat Clearance w eGFR > 60 (>60) 12/06/17 06:45 Random Glucose 134 mg/dL (74-106) H D 12/07/17 06:57 Calcium 8.1 mg/dL (8.5-10.1) L 12/07/17 06:57 Total Bilirubin 0.2 mg/dL (0.2-1.0) 12/06/17 06:45 AST 19 U/L (15-37) D 12/06/17 06:45 ALT 17 U/L (12-78) D 12/06/17 06:45 Alkaline Phosphatase 57 U/L (45-117) 12/06/17 06:45 Total Protein 5.4 g/dl (6.4-8.2) L D 12/06/17 06:45 Albumin 2.4 g/dl (3.4-5.0) L 12/06/17 06:45 CARDIAC ENZYMES Creatine Kinase 203 IU/L (39-308) 12/05/17 05:43 Troponin I 2.01 ng/ml (0.00-0.05) H* 12/05/17 21:40 Microbiology 12/07/17 06:40 Urine - Urine Clean Catch Urine Culture - Preliminary Lactose Fermenting Neg Bacilli Proteus Species Assessment: This is an 82 year old male with PMHx of HTN, HLD, CAD s/p CABG, diastolic dysfunction, CVA (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 No regional wall motion abnormalities. Mild to moderate MR, mild TR, mild aortic stenosis. Trace aortic regurg, no pericardial effusion - EKG with no ST changes - Appreciate cardiology consult 3) UTI - UA with 3+ leuks - Urine culture Lactose fermenting negative bacilli, proteus species - Start Zosyn today 4) Unwitnessed fall vs. syncope - CT head with no evidence of intracranial hemorrhage - Carotid doppler negative for high grade stenosis - Appreciate neurology consult 5) HTN - Continue Atenolol (monitor HR and BP closely) 6) Hyperlipidemia - Continue Zetia - Lipitor discontinued as the family reports the patient was unable to tolerate it 7) CVA - Hx of brain stem infarct 01/2017 - Hold ASA - No statin as above 8) IDDM - BGM ACHS - ISS ACHS 9) Bladder/prostate cancer - May be reason for hematuria? - F/u urology consult 10 ) Hypothyroidism - Continue Synthroid - TSH wnl 11) F/E/N: - Diabetic/sodium controlled diet - Monitor electrolytes 12) Prophylaxis: - Hold all chemical DVT prophylaxis 2/2 severe anemia - SCDs bilaterally 13) Dispo: - Requires continued inpatient care Visit type - Emergency Visit Emergency Visit: Yes ED Registration Date: 03/26/18 Care time: The patient presented to the Emergency Department on the above date and was hospitalized for further evaluation of their emergent condition. - New Patient This patient is new to me today: No - Critical Care Critical Care patient: No
[2017-12-08] MEDS ORDERED: PT OWN MED DRAWER 7, Y5N ONE (18:48)
[2017-12-08] MEDS: MELATONIN 5 MG TABLETS PO PRN (23:26)
[2017-12-09] MEDS: PIPERACILLIN/TAZOB 3.375 GM 3.375 GM in DEXTROSE 5%-WATER - 50 ML IVPB SCH ×2 (01:29→09:47)
[2017-12-09] MEDS: INSULIN SLIDING SCALE (NOVOLOG) 1 VIAL SQ SCH ×3 (06:02→16:56)
[2017-12-09] MEDS: LEVOTHYROXINE NA 25 MCG TABLET (FP) PO SCH (06:03)
[2017-12-09 07:55] LABS: HEMATOCRIT 27.2 % (35.4-49); HEMOGLOBIN 8.8 GM/dL (11.7-16.9); MCHC 32.4 g/dl (32.0-35.9); MEAN PLT VOLUME 8.2 fl (7.5-11.1); PLATELET COUNT 255 K/MM3 (134-434); RBC 3.53 M/mm3 (4.00-5.60); RDW 24.5 % (11.9-15.9); WHITE BLOOD COUNT 8.1 K/mm3 (4.0-10.0)
[2017-12-09] MEDS ORDERED: FERROUS SO4 325 MG TABLET (FP) PO SCH (08:00)
[2017-12-09 08:01] LABS: ALBUMIN 2.6 g/dl (3.4-5.0); ANION GAP 11 (8-16); BLOOD UREA NITROGEN 26 mg/dL (7-18); CALCIUM 8.1 mg/dL (8.5-10.1); CHLORIDE 104 mmol/L (98-107); CO2 25 mmol/L (21-32); GLUCOSE,RANDOM 117 mg/dL (74-106); POTASSIUM 4.1 mmol/L (3.5-5.1); SODIUM 140 mmol/L (136-145)
[2017-12-09 08:04] LABS: ALK PHOS 79 U/L (45-117); BILIRUBIN,TOTAL 0.3 mg/dL (0.2-1.0); CREATININE 1.1 mg/dL (0.7-1.3); SGOT/AST 22 U/L (15-37); SGPT/ALT 28 U/L (12-78); TOT PROT 6.1 g/dl (6.4-8.2)
[2017-12-09] MEDS ORDERED: PT OWN MED DRAWER 7, Y5N ONE (09:22)
[2017-12-09] MEDS: EZETIMIBE 10 MG TABLET (FP) PO SCH (09:47)
[2017-12-09] MEDS: ATENOLOL 25 MG TABLET (FP) PO SCH (09:47)
[2017-12-09] MEDS: MAGNESIUM HYDROX 2400MG/30ML ORAL SUSPENSION 30 ML CUP PO SCH (09:47)
[2017-12-09] MEDS ORDERED: PICC LINE 8 ML FLUSH PROTOCOL IVPUSH PRN (12:38)
[2017-12-09] MEDS ORDERED: ERTAPENEM SODIUM 1 GM in SODIUM CHLORIDE 100 ML IVPB SCH (12:45)
--- NOTE | 2017-12-09 13:01 | DS ---
Physical Examination Vital Signs: Vital Signs Temperature 98.4 F 12/09/17 09:00 Pulse Rate 60 12/09/17 09:00 Respiratory Rate 20 12/09/17 09:00 Blood Pressure 141/74 12/09/17 09:00 O2 Sat by Pulse Oximetry (%) 96 12/09/17 09:00 Labs: CBC, BMP 12/09/17 06:00 12/09/17 06:00 Discharge Summary Reason For Visit: FALL Current Active Problems Dementia (Acute) Fall (Acute) Hematuria (Acute) Hematuria (Acute) Condition: Improved - Instructions Diet, Activity, Other Instructions: Please return to the ED with new, persistent, or worsening symptoms. Please follow-up with providers as indicated. Please stop taking Aspirin until you are evaluated by Dr. Meraz Referrals: Jimmy Schultz MD [Staff Physician] - (Please follow-up with infectious disease after you have completed the two week course of Ertapenem) Anatoly Meraz MD., MD [Staff Physician] - (Please follow-up with urology within 1 week for further evaluation of your hematuria ) Disposition: SNF FACILITY - Home Medications Comprehensive Discharge Medication List: Ambulatory Orders Acetaminophen [Tylenol] 650 mg PO PRN PRN 01/22/17 Bupropion HCl [Wellbutrin Xl] 300 mg PO DAILY 01/22/17 Levothyroxine [Synthroid -] 25 mcg PO DAILY 01/22/17 Magnesium Hydroxide [Milk of Magnesia] 30 ml PO DAILY 01/22/17 Atenolol [Tenormin -] 25 mg PO DAILY tablet 01/23/17 Ezetimibe [Zetia -] 10 mg PO DAILY #0 tablet 01/23/17 Ertapenem Sodium [Invanz -] 1 gm IVPB DAILY vial 12/09/17 Ferrous Sulfate [Feosol] 325 mg PO DAILY@0800 ud 12/09/17 Insulin Sliding Scale [Novolog Vial Sliding Scale -] 1 vial SQ ACHS units 12/09 Melatonin 5 mg PO HS PRN tab 12/09/17 Picc Line Flush [Picc Line Flush -] 8 ml IVPUSH PRN PRN ml 12/09/17
--- NOTE | 2017-12-09 13:24 | PN ---
Progress Note, Physician History of Present Illness: stable no new issues plan is for picc line patient calm - Current Medication List Current Medications: Active Medications Atenolol (Tenormin -) 25 mg PO DAILY [facility] Last Admin: 12/09/17 09:47 Dose: 25 mg Bupropion HCl (Wellbutrin Xl -) 300 mg PO DAILY [facility] Last Admin: 12/09/17 09:47 Dose: 300 mg Ezetimibe (Zetia -) 10 mg PO DAILY [facility] Last Admin: 12/09/17 09:47 Dose: 10 mg Ferrous Sulfate (Feosol -) 325 mg PO DAILY@0800 [facility] Last Admin: 12/09/17 08:11 Dose: 325 mg IV Flush (Picc Line Flush) 8 ml IVPUSH PRN PRN PRN Reason: Protocol Ertapenem 1 gm/ Sodium (Chloride) 100 mls @ 200 mls/hr IVPB DAILY ZEUS PRN Reason: Protocol Insulin Aspart (Novolog Vial Sliding Scale -) 1 vial SQ ACHS ZEUS PRN Reason: Protocol Last Admin: 12/09/17 11:34 Dose: 6 unit Levothyroxine Sodium (Synthroid -) 25 mcg PO AM [facility] Last Admin: 12/09/17 06:03 Dose: 25 mcg Magnesium Hydroxide (Milk Of Magnesia -) 30 ml PO DAILY [facility] Last Admin: 12/09/17 09:47 Dose: 30 ml Melatonin (Melatonin) 5 mg PO HS PRN PRN Reason: INSOMNIA Last Admin: 12/08/17 23:26 Dose: 5 mg - Objective Vital Signs: Vital Signs Temperature 98.4 F 12/09/17 09:00 Pulse Rate 60 12/09/17 09:00 Respiratory Rate 20 12/09/17 09:00 Blood Pressure 141/74 12/09/17 09:00 O2 Sat by Pulse Oximetry (%) 96 12/09/17 09:00 Constitutional: Yes: No Distress, Calm, Other (failure to thrive) Cardiovascular: Yes: S1, S2 Respiratory: Yes: Regular, CTA Bilaterally Gastrointestinal: Yes: Normal Bowel Sounds, Soft Genitourinary: Yes: Hematuria (resolved), Other Musculoskeletal: Yes: WNL Extremities: Yes: Other Neurological: Yes: Alert Psychiatric: Yes: Alert Labs: CBC, BMP 12/09/17 06:00 12/09/17 06:00 Assessment/Plan uti anemia fall htn plan continue current mgt patients urine cx has come now esbl patient will need 2 weeks of iv abx start patient on ertapenam 1 gm daily
[2017-12-09 15:11] VITALS: BP 103/50; PULSE 63; TEMP 97.5
--- NOTE | 2017-12-09 15:50 | PATH ---
Cytology Non-Gynecological Report Patient Name: KRISTOFER CASTILLO Med. Rec. #: [id number] /Age/Gender: 1935 (Age: 82) / M Account: [id number] Location: [facility] MED/SURG Taken: 12/06/2017 Received: 12/08/2017 Reported: 12/09/2017 Physicians: Mike Mooney M.D. Specimen(s) Received URINE Clinical History Bladder/prostate cancer Final Diagnosis URINE FOR CYTOLOGY: SATISFACTORY FOR EVALUATION BUT LIMITED BY OBSCURING ACUTE INFLAMMATION. BENIGN (NO MALIGNANT CELLS IDENTIFIED). ABUNDANT NEUTROPHILS, ALONG WITH BENIGN AND REACTIVE UROTHELIAL CELLS AND BACTERIAL FORMS PRESENT. Comment: Correlation with urine culture findings may be useful if clinically indicated. Electronically Signed Nelson Go M.D. Gross Description Approximately 10 cc of dark yellow fluid received fresh. Two cytofunnels prepared.
== END 2017-12-09 18:05 | DRG 723 ==
LOC: JER 04:10 → JERBED 09:58 → J4W 20:37 → OBSVTOIN 12-06 15:34 → J7W 12-07 19:45
PROVIDERS: ADMIT Internal Medicine; ATTEND Registered Nurse
PROC: 02HV33Z Insertion of Infusion Device into Superior Vena Cava, Percutaneous Approach (ICD-10-PCS; principal; 2017-12-09)
PROC: B548ZZA Ultrasonography of Superior Vena Cava, Guidance (ICD-10-PCS; 2017-12-09)
DX: C61 Malignant neoplasm of prostate (principal); N39.0 Urinary tract infection, site not specified; C67.9 Malignant neoplasm of bladder, unspecified; R31.0 Gross hematuria; D50.9 Iron deficiency anemia, unspecified; Z95.1 Presence of aortocoronary bypass graft; I25.10 Atherosclerotic heart disease of native coronary artery without angina pectoris; Z79.4 Long term (current) use of insulin; E11.9 Type 2 diabetes mellitus without complications; E03.9 Hypothyroidism, unspecified; I10 Essential (primary) hypertension; E78.5 Hyperlipidemia, unspecified; G30.9 Alzheimer's disease, unspecified; R55 Syncope and collapse; F02.80 Dementia in other diseases classified elsewhere, unspecified severity, without behavioral disturbance, psychotic disturbance, mood disturbance, and anxiety; S00.81XA Abrasion of other part of head, initial encounter; S00.212A Abrasion of left eyelid and periocular area, initial encounter; W19.XXXA Unspecified fall, initial encounter; Y93.89 Activity, other specified; Y92.128 Other place in nursing home as the place of occurrence of the external cause; Y99.8 Other external cause status; Z86.73 Personal history of transient ischemic attack (TIA), and cerebral infarction without residual deficits
CPT/HCPCS: 36415; 36430; 36511; 36569; 70450-TC; 71046-TC-FY; 72170-TC-FY; 77001-TC-FY; 80048; 80053; 81003; 81015; 82272; 82550; 82553; 82728; 82962; 83540; 83550; 83735; 83880; 84443; 84466; 84484; 85025; 85027; 86850; 86900; 86901; 86922; 87086; 87186; 88108; 93005; 93010; 93306-TC; 93880-TC; 97116-GP; 97161-GP; 99285-25; C1751; G0378; P9038; P9058